=== PATIENT | female | born 1960 | race Caucasian/White ===

== ENCOUNTER 2016-10-29 17:39 | Inpatient (IN) | payer OTHER ==
[~2016-10-29] VITALS: Ht 160 cm; Wt 99.0 kg
[~2016-10-29 17:39] MED LIST: INSU100C SC; LANT3I SC; LISI10TA2 PO; OMEP20CA16 PO
[2016-10-29 22:33] VITALS: Ht 160 cm; Wt 99.0 kg
[2016-10-29 22:48] VITALS: BP 141/65; PULSE 90; RESP 18
[2016-10-29] MEDS: DEXTROSE 5%-0.9% NACL 1,000 ML IV SCH (23:24)
[2016-10-29] MEDS ORDERED: ONDANSETRON 4 MG INJ IV PRN (23:30)
[2016-10-29] MEDS ORDERED: morphine 10 MG INJ IM PRN (23:30)
[2016-10-30] MEDS ORDERED: NACL 0.9% 3 ML SYG IV SCH (00:30)
[2016-10-30] MEDS ORDERED: ACETAMINOPHEN 325 MG TAB PO PRN (00:30)
[2016-10-30] MEDS ORDERED: HYDROCODONE/APAP (5/325) TAB PO PRN (00:30)
[2016-10-30] MEDS ORDERED: ONDANSETRON 4 MG INJ IV PRN (00:30)
[2016-10-30] MEDS ORDERED: BISACODYL (EC) 5 MG TAB PO PRN (00:30)
[2016-10-30] MEDS ORDERED: GLUCOSE GEL 15 GRAM TUBE BUCCAL PRN (01:00)
[2016-10-30] MEDS ORDERED: DEXTROSE 50% 50 ML SYRINGE IV PRN ×2 (01:00)
[2016-10-30] MEDS ORDERED: GLUCOSE GEL 15 GRAM TUBE PO PRN ×2 (01:00)
[2016-10-30] MEDS ORDERED: GLUCAGON 1 MG INJ IM PRN (01:00)
[2016-10-30] MEDS: ACCU-CHEK XX SCH (02:00)
[2016-10-30] MEDS: PANTOPRAZOLE 40 MG INJ IV SCH (05:36)
[2016-10-30] MEDS ORDERED: PANTOPRAZOLE 40 MG INJ IV SCH (06:00)
[2016-10-30 07:22] VITALS: BP 107/53; RESP 16
[2016-10-30] MEDS: LISINOPRIL 10 MG TAB PO SCH (08:05)
[2016-10-30] MEDS: INSULIN ASPART [NOVOLOG] 3 ML PEN SC SCH ×4 (08:13→22:43)
[2016-10-30] MEDS: DEXTROSE 5%-0.9% NACL 1,000 ML IV SCH ×2 (12:50→20:16)
--- NOTE | 2016-10-30 16:32 | QN ---
Documentation Comment [id number] JAILYN ERNST MD Oct 30, 2016 16:32
--- NOTE | 2016-10-30 16:49 | CONS ---
[facility] initial inpatient consultation DATE OF CONSULTATION: 10/30/2016 PLACE OF SERVICE: [facility] 6th floor. IMPRESSION AND PLAN: A very pleasant 56-year-old lady with numerous comorbidities including a BMI of 38.7 as well as diabetes, gastritis and history of cirrhosis as per her own report treated by Dr. Peñaloza as an outpatient, presenting with abdominal pain of unclear etiology. The patient could be a higher than normal risk given reported cirrhosis and we also need to find out much more about her medical history prior to exposing her to the risk of an operation. Fortunately, her clinical picture is stable enough that I do not believe that she needs emergency operation. In this setting, further imaging as well as more laboratory testing would be beneficial including a HIDA scan as well as a CT scan of abdomen and pelvis with IV and oral contrast in order to get a good idea of the internal anatomy. Should she require surgical intervention that could certainly be done here at [facility] as long as the patient and family understand the extra risk that is needed that is involved in this kind of operation. I explained all this to the patient who appeared to understand and agrees with the plan. With above assessment, I recommended the followin. CT scan liver dedicated triple phase IV contrast of the abdomen and pelvis. 2. HIDA scan. 3. Load the previous images of ultrasound on to our PACS system. 4. Possible gastroenterology consultation for evaluation of the liver. 5. Possible laparoscopic cholecystectomy if indicated by above. Thank you again for allowing us to participate in the care of this very pleasant lady and I am certain her wonderful family. If there are any questions , please feel free to call me at [phone]. TOTAL VISIT TIME: 45 minutes of which more than half was spent in [id number] discussion with the patient (no family present during any of my discussions with the patient) as well as coordination of care between multiple physicians and providers. UPDATED CLINICAL SUMMARY: Patient is a very pleasant 56-year-old lady with comorbidities of possible cirrhosis as reported by her own account. Admitted through the transfer from an outside hospital to [facility] for concerns for gallbladder disease and possible acute cholecystitis. COMORBIDITIES: 1. BMI 38.7. 2. The patient reports having history of cirrhosis and being treated by Dr. Willam Peñaloza on the outside for the last 15 years. 3. Known cholelithiasis. 4. Diabetes. DATE OF ADMISSION: 10/29/2016 HISTORY OF THE PRESENT ILLNESS: The patient is a very pleasant 56-year-old lady whom we were kindly asked to consult regarding management of possible cholelithiasis and acute cholecystitis. Note that she was transferred from an outside hospital to [facility] after she presented there with right upper quadrant abdominal pain that was approximately 7/10 to 10/10 at its worse. Patient reports having history of cirrhosis and being treated by Dr. Willam Peñaloza for the last 15 years, although she does not report any evidence of ascites and no history of vomiting blood. She also reported having diabetes and thought that her cirrhosis was due to her medications. The patient's outside workup included an ultrasound of the right upper quadrant that demonstrated cholelithiasis and mildly thickened gallbladder wall, which could represent early acute cholecystitis. There was no mention of significant cirrhosis on the ultrasound. LABORATORY DATA: Show a platelet count of 120 in May. In April 2014 that was 158 in 149 respectively. The patient's albumin was 3.2. White blood cell count was 2.9. ALLERGIES: NO KNOWN DRUG ALLERGIES. MEDICATIONS 1. Lantus. 2. Humalog. 3. Lisinopril. 4. Omeprazole. SOCIAL HISTORY: The patient lives with her family and does not report any smoking, drinking or intravenous drug use. FAMILY HISTORY: No major reported medical, surgical or oncologic problems in the family. REVIEW OF SYSTEMS: Other than the above-mentioned, there are no other pertinent positives or pertinent negatives in a complete 14-point review of systems. PHYSICAL EXAMINATION: GENERAL: The patient appears to be a very pleasant lady of descent, appearing stated age, lying in bed comfortably and in no acute distress. Her BMI is 38.7. VITAL SIGNS: Temperature is 98.8, blood pressure 107/53, pulse 82, respiratory rate 16, pulse oximetry 97% on room air. HEENT: Normocephalic and atraumatic. Extraocular muscles and hearing are grossly intact bilaterally and symmetrically. Sclerae are nonicteric. Oral cavity is clear; oral mucosa appeared to be pink and moist. Dentition: fair to poor. NECK: Supple. There is no lymphadenopathy or JVD. There is no submental, submandibular or supraclavicular lymphadenopathy. CHEST: Rises symmetrically with each breath; patient is breathing comfortably. There are no audible wheezes, rales or rhonchi on the gross exam. HEART: Pulse is regular and palpable on the left wrist. Capillary refill was normal. Carotid pulses are palpable bilaterally and symmetrically in the neck. EXTREMITIES: Lower extremities contain no pitting edema around the ankles bilaterally and symmetrically. ABDOMEN: Her abdomen is soft, protuberant, but not distended and nontender. There are no peritoneal signs or guarding. There is no evidence of organomegaly , caput medusae, engorged subcutaneous veins or ascites. SKIN: Appears to be pink and feels warm to touch. NEUROLOGIC: Awake, alert, and follows commands appropriately. LABORATORY VALUES: As above. IMAGING: As above. Note that I did not get a chance to personally review the images. Dictated By: DEMARIO MENARD/MONICA Conf#: [id number] DID#: [id number]
--- NOTE | 2016-10-30 17:24 | HP ---
DATE OF ADMISSION: 10/29/2016 HISTORY OF PRESENT ILLNESS: Elaine Salgado is a 56-year-old female who is admitted with abdominal pain and was transferred to [facility] since this is [facility]. LABORATORY DATA: The patient's laboratory data done shows WBC 2.8. Patient's hemoglobin of 8.2, potassium 3.8, sodium 135, albumin 3.2. Abnormal LFT. The patient has abdominal ultrasound shows cholelithiasis, mild gallbladder wall thickening, negativ_ sign. The patient is being seen by Dr. Kennedy in consultation and Dr. Nova. The patient received normal saline, Zofran, Toradol and morphine and was transferred here for further management. PAST MEDICAL HISTORY: Positive for diabetes mellitus, dyspepsia and dyslipidemia. FAMILY HISTORY: Noncontributory. SOCIAL HISTORY: Negative for smoking and drinking at this point. Other past medical history includes gallstone, hypertension, cirrhosis of the liver, diabetes mellitus. PAST SURGICAL HISTORY: Negative. FAMILY HISTORY: Noncontributory. MEDICATION HISTORY: The patient's medication history at home includes 1. Lantus. 2. Omeprazole. 3. Simvastatin. REVIEW OF SYSTEMS: HEENT: Unremarkable. RESPIRATORY: Unremarkable. CARDIOVASCULAR: Unremarkable. ABDOMEN: As mentioned above. EXTREMITIES: Unremarkable. GENITOURINARY: Unremarkable. MUSCULOSKELETAL: Unremarkable. PHYSICAL EXAMINATION: GENERAL: Mildly overweight female, awake, alert. VITAL SIGNS: Stable. HEAD: Atraumatic, normocephalic. Pupils equal, reactive to light. NECK: Supple. No JVD. LUNGS: Clear. CARDIOVASCULAR: S1, S2 normal. ABDOMEN: Soft, nontender. Bowel sounds present. No palpable mass. EXTREMITIES: No cyanosis, clubbing, or edema. CENTRAL NERVOUS SYSTEM: The patient is awake, alert, no focal deficit. LABORATORY DATA: From this admission is not available. IMPRESSION: 1. Abdominal pain. 2. Gallstone. 3. Diabetes mellitus, hypertension, cholelithiasis, abnormal liver function tests. 4. History of cirrhosis of the liver per record. PLAN: To keep her n.p.o., IV fluid, pain medications. Gastroenterology consultation and surgical consultation. Orders were done. Deep venous thrombosis prophylaxis will be ordered. Dictated By: JAILYN KRISHNAMURTHY/MONICA Conf#: [id number] DID#: [id number] MTDD
[2016-10-30 20:10] VITALS: BP 130/68; RESP 20
[2016-10-31] MEDS: ACCU-CHEK XX SCH (02:00)
[2016-10-31] MEDS: DEXTROSE 5%-0.9% NACL 1,000 ML IV SCH ×2 (02:10→15:30)
[2016-10-31] MEDS: PANTOPRAZOLE 40 MG INJ IV SCH (05:14)
[2016-10-31 05:33] LABS: ADD SCAN DIFF NO
[2016-10-31 05:45] LABS: HEMATOCRIT 25.2 % (37.0-47.0); HEMOGLOBIN 7.5 g/dl (12.0-16.0); MEAN CORPUSCULAR HEMOGLOBIN 21.6 pg (29.0-33.0); MEAN CORPUSCULAR HGB CONC 29.8 g/dl (32.0-37.0); MEAN CORPUSCULAR VOLUME 72.4 fl (82.0-101.0); MEAN PLATELET VOLUME 9.7 fl (7.4-10.4); PLATELET COUNT 122 10^3/UL (140-415); RED BLOOD COUNT 3.48 10^6/ul (4.20-5.40); RED CELL DISTRIBUTION WIDTH 17.6 % (11.5-14.5); WHITE BLOOD COUNT 2.5 10^3/ul (4.8-10.8)
[2016-10-31 06:03] LABS: POTASSIUM 3.8 mmol/L (3.5-5.1)
[2016-10-31 06:05] LABS: ALBUMIN/GLOBULIN RATIO 0.76; BILIRUBIN,INDIRECT 0.4 mg/dl (0-1.1); BILIRUBIN,TOTAL 0.4 mg/dl (0.2-1.3); CREATININE 0.64 mg/dl (0.44-1.00); TOTAL PROTEIN 6.9 g/dl (6.1-8.1)
[2016-10-31 06:06] LABS: CALCIUM 8.1 mg/dl (8.4-10.2)
[2016-10-31 08:05] VITALS: BP 123/59; RESP 20
[2016-10-31] MEDS: LISINOPRIL 10 MG TAB PO SCH (08:24)
[2016-10-31] MEDS: INSULIN ASPART [NOVOLOG] 3 ML PEN SC SCH ×4 (09:19→20:37)
[2016-10-31 10:11] LABS: EOSINOPHILS # 0.1 10^3/ul (0.0-0.5); MONOCYTE # 0.2 10^3/ul (0.3-0.9); NEUTROPHIL # 1.3 10^3/ul (1.6-7.5)
--- NOTE | 2016-10-31 16:42 | PN ---
Date/Time of Note Date/Time of Note DATE: 10/31/16 TIME: 16:40 Assessment/Plan VTE Prophylaxis VTE Prophylaxis Intervention: ambulation, SCD's Lines/Catheters IV Catheter Type (from Nrs): Peripheral IV Urinary Cath still in place: No Assessment/Plan Chief Complaint/Hosp Course 1. Abdominal pain. 2. Gallstone. 3. Diabetes mellitus, hypertension, cholelithiasis, abnormal liver function tests. 4. History of cirrhosis of the liver per record. Problems: Assessment/Plan 1. Evaluate for possible gall bladder removal 2. Anbulate 3. Pain control Exam/Review of Systems Vital Signs Vitals Vital Signs Date Time Temp Pulse Resp B/P Pulse Ox O2 Delivery O2 Flow Rate FiO2 10/31/16 08:05 98.7 80 20 123/59 96 10/29/16 22:48 Room Air Intake and Output 10/30/16 10/30/16 10/31/16 15:00 23:00 07:00 Intake Total 525 ml 375 ml 360 ml Output Total 1200 ml 1200 ml Balance 525 ml -825 ml -840 ml Results Result Diagram: 10/31/16 0445 10/31/16 0445 Results 24 hrs Laboratory Tests Test 10/30/16 17:01 10/30/16 22:39 10/31/16 02:52 10/31/16 04:45 Bedside Glucose 117 209 154 White Blood Count 2.5 L Red Blood Count 3.48 L Hemoglobin 7.5 L Hematocrit 25.2 L Mean Corpuscular Volume 72.4 L Mean Corpuscular Hemoglobin 21.6 L Mean Corpuscular Hemoglobin Concent 29.8 L Red Cell Distribution Width 17.6 H Platelet Count 122 L Mean Platelet Volume 9.7 Neutrophils % 51.0 Lymphocytes % 39.0 Monocytes % 8.0 Eosinophils % 2.0 Neutrophils # 1.3 L Lymphocytes # 1.0 Monocytes # 0.2 L Eosinophils # 0.1 Sodium Level 146 H Potassium Level 3.8 Chloride Level 112 H Carbon Dioxide Level 25 Anion Gap 13 Blood Urea Nitrogen 9 Creatinine 0.64 Glucose Level 153 Calcium Level 8.1 L Total Bilirubin 0.4 Direct Bilirubin 0.00 Indirect Bilirubin 0.4 Aspartate Amino Transf (AST/SGOT) 49 H Alanine Aminotransferase (ALT/SGPT) 37 Alkaline Phosphatase 90 Total Protein 6.9 Albumin 3.0 L Globulin 3.90 H Albumin/Globulin Ratio 0.76 Test 3/24/17 07:56 10/31/16 11:54 Bedside Glucose 192 201 Medications Medications Current Medications Dextrose/Sodium Chloride (D5-NS) 1,000 ml @ 75 mls/hr [id number] IV Last administered on 10/30/16 20:16; Admin Dose 75 MLS/HR; Start 10/29/16 at 23:30 Pantoprazole (Protonix Iv) 40 mg DAILY@06 IV Last administered on 10/31/16 05: 14; Admin Dose 40 MG; Start 10/30/16 at 06:00 Morphine Sulfate (morphine) 2 mg Q4H PRN IM FOR PAIN; Start 10/29/16 at 23:30 Ondansetron HCl (Zofran Inj) 4 mg Q6H PRN IV NAUSEA AND/OR VOMITING; Start at 23:30 Lisinopril (Zestril) 10 mg DAILY PO Last administered on 10/31/16 08:24; Admin Dose 10 MG; Start 10/30/16 at 09:00 Ondansetron HCl (Zofran Inj) 4 mg Q6H PRN IV NAUSEA AND/OR VOMITING; Start at 00:30 Acetaminophen (Tylenol Tab) 650 mg Q6H PRN PO PAIN LEVEL 1-3 OR FEVER; Start at 00:30 Acetaminophen/ Hydrocodone Bitart ([place] (5/325)) 1 tab Q6H PRN PO MODERATE PAIN LEVEL 4-6; Start 10/30/16 at 00:30 Docusate Sodium (Colace) 100 mg Q12H PRN PO CONSTIPATION; Start 10/30/16 at 00: 30 Magnesium Hydroxide (Milk Of Mag) 30 ml DAILY PRN PO CONSTIPATION; Start at 00:30 Bisacodyl (Dulcolax) 5 mg DAILY PRN PO CONSTIPATION; Start 10/30/16 at 00:30 Diagnostic Test (Pha) (Accucheck) 1 ea 02 XX ; Start 10/30/16 at 02:00 Miscellaneous Information 1 ea NOTE XX ; Start 10/30/16 at 01:00 Glucose (Glutose) 15 gm Q15M PRN PO DECREASED GLUCOSE; Start 10/30/16 at 01:00 Glucose (Glutose) 22.5 gm Q15M PRN PO DECREASED GLUCOSE; Start 10/30/16 at 01: 00 Dextrose (D50w Syringe) 25 ml Q15M PRN IV DECREASED GLUCOSE; Start 10/30/16 at 01:00 Dextrose (D50w Syringe) 50 ml Q15M PRN IV DECREASED GLUCOSE; Start 10/30/16 at 01:00 Glucagon (Glucagen) 1 mg Q15M PRN IM DECREASED GLUCOSE; Start 10/30/16 at 01:00 Glucose (Glutose) 15 gm Q15M PRN BUCCAL DECREASED GLUCOSE; Start 10/30/16 at 01 :00 SUSANA BELLO Oct 31, 2016 16:42
--- NOTE | 2016-10-31 17:43 | PN ---
Date/Time of Note Date/Time of Note DATE: 10/31/16 TIME: 17:41 Assessment/Plan Lines/Catheters IV Catheter Type (from [facility]): Peripheral IV Lin in Place (from [facility]): No Assessment/Plan Assessment/Plan [facility] Progress Note Date of Service: 10/31/16 Today's Impression & Plan: Overall stable with benign abdomen. Awaiting liver-CT. With above assessment, I've recommended the following for today: 1. Liver CT 2. Obtain old records 3. D/W Dr. Beaver 4. Further plans after above Thank you again for your great care of this very pleasant patient and wonderful family. If there are any questions, please feel free to call me at [phone]. TOTAL VISIT TIME: 20 minutes of which more than half was spent in [id number] discussion with the patient, possibly including family, as well as coordination of care between multiple physicians and providers. Disclaimer: Inadvertent spelling or grammatical errors are likely due to EHR/ dictation software use and do not reflect on the overall quality of patient care. Updated Clinical Summary: Patient is a very pleasant 56-year-old lady with comorbidities of possible cirrhosis as reported by her own account. Admitted through the transfer from an outside hospital to [facility] for concerns for gallbladder disease and possible acute cholecystitis. COMORBIDITIES: 1. BMI 38.7. 2. The patient reports having history of cirrhosis and being treated by Dr. Willam Peñaloza on the outside for the last 15 years. 3. Known cholelithiasis. 4. Diabetes. Subjective: No major events or complaints; no abd pain and under control with medications; no n/v/d; no sob or cp; + flatus; + BM; + activity Objective: Vitals: See below Exam: GENERAL: On exam, the patient was laying in bed and appeared to be comfortable and in no acute distress. ABDOMEN: Soft, nontender and nondistended. There are no peritoneal signs or guarding. SKIN: Skin appears to be pink and feels warm to touch. NEUROLOGIC: Patient is awake, alert, and follows commands appropriately. Exam/Review of Systems Vital Signs Vitals Vital Signs Date Time Temp Pulse Resp B/P Pulse Ox O2 Delivery O2 Flow Rate FiO2 10/31/16 08:05 98.7 80 20 123/59 96 10/29/16 22:48 Room Air Intake and Output 10/30/16 10/30/16 10/31/16 15:00 23:00 07:00 Intake Total 525 ml 375 ml 360 ml Output Total 1200 ml 1200 ml Balance 525 ml -825 ml -840 ml Results Result Diagram: 10/31/16 0445 10/31/16 0445 DEMARIO JONES M.D. Oct 31, 2016 17:43
[2016-10-31 20:12] VITALS: BP 148/76; RESP 20
[2016-10-31] MEDS ORDERED: SOD CHLORIDE 0.9% 100 ML ONE (21:45)
[2016-10-31] MEDS ORDERED: IOHEXOL 300MG/ML 150 ML BTL ONE (21:45)
[2016-11-01] MEDS: ACCU-CHEK XX SCH (02:00)
[2016-11-01] MEDS: DEXTROSE 5%-0.9% NACL 1,000 ML IV SCH ×2 (05:06→17:19)
[2016-11-01] MEDS: PANTOPRAZOLE 40 MG INJ IV SCH (05:06)
[2016-11-01 07:32] VITALS: BP 132/59; RESP 18
[2016-11-01] MEDS: INSULIN ASPART [NOVOLOG] 3 ML PEN SC SCH ×4 (08:27→21:36)
[2016-11-01] MEDS: LISINOPRIL 10 MG TAB PO SCH (08:54)
--- NOTE | 2016-11-01 09:51 | RADRPT ---
PROCEDURE: CT Abdomen and Pelvis with and without contrast CLINICAL INDICATION: Abdominal pain, history of cirrhosis TECHNIQUE: Transaxial images were obtained through the abdomen on a multi-slice scanner prior to t he administration of contrast, and then following the intravenous administration of contrast, transa xial images were made through the abdomen during arterial phase and through the abdomen and pelvis a nd portal venous phase and at 3 minutes delayed. No oral contrast had previously been given. Sagit sari and coronal re-formations were subsequently reconstructed. One or more of the following dose reduction techniques were used: - Automated exposure control. - Adjustment of the mA and/or kV according to patient size. - Use of iterative reconstruction technique. Radiation dose: CTDIvol = 75.27 mGy; DLP = 3488.59 mGy-cm. COMPARISON: No prior studies are available for comparison. FINDINGS: Lung bases: The visualized lung bases appear unremarkable. Liver: The liver is normal in size but nodular in contour compatible with cirrhotic change. No foca l lesion is identified. The hepatic and portal veins appear patent. Gallbladder: The gallbladder wall is extensively thickened and a few small stones are seen within th e gallbladder. Bile ducts: The intra and extrahepatic bile ducts are normal in caliber. Pancreas: The pancreas is fatty infiltrated and there is mild fluid in the [place] pancreatic head for which an element of acute pancreatitis cannot be excluded. Spleen: The spleen is enlarged in varices are seen in the splenic hilum. Adrenals: Normal with no mass identified. Kidneys, ureters and bladder: The kidneys enhance normally and are normal in size and there is no ma ss, pathological calcification, or hydronephrosis evident. There is no perinephric stranding. The ur eters are normal in caliber and no ureteroliths are identified. The bladder is suboptimally distende d and the wall appears diffusely thickened.. Reproductive organs: The uterus deviates slightly to the left of midline. No adnexal mass is eviden t. Stomach, bowel, and mesentery: There is bowel wall thickening involving the cecum and ascending colo n as well as the splenic flexure region suggestion of colitis. There is no evidence of bowel obstru ction. Appendix: There are no findings to suggest appendicitis. Peritoneum: There is a small amount of free intraperitoneal fluid. There is stranding within the me sentery. Aorta: There is atherosclerotic vascular calcification but no abdominal aortic aneurysm is evident. IVC: Unremarkable. Lymph nodes: No pathologically enlarged nodes are identified. Osseous structures: Mild degenerative spine changes are noted. IMPRESSION: 1. A few small stones are seen to layer within the gallbladder, the gallbladder is mildly distended and the gallbladder wall is extensively thickened suspicious for cholecystitis. 2. The pancreas is fatty infiltrated and there is a small amount of fluid seen in the peripancreati c bed which could be related to generalized edema, but mild acute pancreatitis cannot be excluded re quiring clinical and laboratory correlation. 3. No wall thickening involving the cecum and ascending colon as well as the splenic flexure raising the possibly of colitis. There is no evidence of bowel obstruction. 4. Normal sized cirrhotic appearing liver with no focal lesion. 5. Splenomegaly with varices seen in the splenic hilum. 6. Small amount of free intraperitoneal fluid. No free air is evident. 7. Atherosclerotic vascular calcification. Physician Rajeev Date Time Electronically viewed and signed by Physician Rajeev on 11/01/2016 09:50 /
--- NOTE | 2016-11-01 11:11 | CONS ---
DATE OF ADMISSION: 10/29/2016 DATE OF CONSULTATION: HISTORY OF PRESENT ILLNESS: The patient is a 56-year-old female admitted through the emergency room for abdominal pain and nausea. The patient is known to have cirrhosis of liver. She does not know the exact cause. She is being followed by Dr. iWllam Beaver, who is a communication center operator. She denies GI bleeding, no chest pain, no shortness of breath, no fever. PAST MEDICAL HISTORY: Diabetes mellitus, dyspepsia and dyslipidemia. FAMILY HISTORY: Nothing contributory. SOCIAL HISTORY: Negative for drinking. MEDICATIONS: 1. Lantus. 2. Omeprazole. 3. Simvastatin. REVIEW OF SYSTEMS: Negative. PHYSICAL EXAMINATION GENERAL: Definitely overweight. CARDIOVASCULAR: No murmur, gallop or click. LUNGS: Clear. ABDOMEN: Benign. EXTREMITIES: No pedal edema. Homans sign negative. No clubbing, no cyanosis. CENTRAL NERVOUS SYSTEM: Grossly within normal limit. SGOT is 49. The rest of LFTs within normal l imits. LABORATORY DATA: CBC: Hematocrit is 25. MCV is 72, platelet count is 122. The patient had a work up at the emergency room at another hospital and due to insurance reason, she was transferred here. IMPRESSION: 1. 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 2. Obesity. 3. Diabetes mellitus. 4. Microcytic hypochromic anemia. 5. Thrombocytopenia. 6. Gallstones. PLAN: 1. At this point, is to send for hepatitis serologies to make sure she does not have hepatitis B or C. She gives a history of hepatitis B, but again she is not well informed about her disease. 2. We reviewed the CAT scan for any bile duct stone or biliary dilatation or acute cholecystitis an d also for hepatocellular cancer screening. 3. We will send stool for occult blood. 4. Patient will need EGD to look for the varicose vein and also to find out the cause for the anemi a. She had a colonoscopy done last year by Dr. Smith, and grossly it was negative. Dictated By: ELÍAS BERRY/NTS Conf#: [id number] DID#: [id number] CC: ELÍAS CARR MD;*EndCC*
[2016-11-01] MEDS: DOCUSATE SODIUM 100 MG CAP PO PRN (12:15)
[2016-11-01] MEDS: MAGNESIUM HYDROXIDE 30ML CUP PO PRN (12:15)
--- NOTE | 2016-11-01 12:46 | PN ---
Date/Time of Note Date/Time of Note DATE: 11/01/16 TIME: 12:45 Assessment/Plan VTE Prophylaxis VTE Prophylaxis Intervention: ambulation Lines/Catheters IV [facility] Peripheral IV Urinary Cath still in place: No Assessment/Plan Chief Complaint/Hosp Course 1. Abdominal pain, resolved. 2. Gallstones, s/p CT scan abdomen. 3. Diabetes mellitus, hypertension, cholelithiasis, abnormal liver function tests. 4. History of cirrhosis of the liver per record. Problems: Assessment/Plan 1. Stool OB, pending endoscopy per dr Nova Subjective 24 Hr Interval Summary Constitutional: improved, no complaints Exam/Review of Systems Vital Signs Vitals Vital Signs Date Time Temp Pulse Resp B/P Pulse Ox O2 Delivery O2 Flow Rate FiO2 11/01/16 07:32 98.1 75 18 132/59 97 10/29/16 22:48 Room Air Intake and Output 10/31/16 10/31/16 11/01/16 15:00 23:00 07:00 Intake Total 825 ml 720 ml 730 ml Balance 825 ml 720 ml 730 ml Exam Constitutional: alert, oriented Psych: no complaints Head: normocephalic Eyes: nl conjunctiva ENMT: nl external ears & nose Neck: supple Respiratory: clear to auscultation Cardiovascular: regular rate and rhythm Gastrointestinal: non-tender, soft Genitourinary - Female: nl adnexae Results Result Diagram: 10/31/165 10/31/165 Results 24 hrs Laboratory Tests Test 10/31/16 17:32 10/31/16 20:36 11/01/16 08:03 11/01/16 11:59 Bedside Glucose 138 131 159 208 Medications Medications Current Medications Dextrose/Sodium Chloride (D5-NS) 1,000 ml @ 75 mls/hr [id number] IV Last administered on 11/01/16 05:06; Admin Dose 75 MLS/HR; Start 10/29/16 at 23:30 Pantoprazole (Protonix Iv) 40 mg DAILY@06 IV Last administered on 11/01/16 05: 06; Admin Dose 40 MG; Start 10/30/16 at 06:00 Morphine Sulfate (morphine) 2 mg Q4H PRN IM FOR PAIN; Start 10/29/16 at 23:30 Ondansetron HCl (Zofran Inj) 4 mg Q6H PRN IV NAUSEA AND/OR VOMITING; Start at 23:30 Lisinopril (Zestril) 10 mg DAILY PO Last administered on 11/01/16 08:54; Admin Dose 10 MG; Start 10/30/16 at 09:00 Ondansetron HCl (Zofran Inj) 4 mg Q6H PRN IV NAUSEA AND/OR VOMITING; Start at 00:30 Acetaminophen (Tylenol Tab) 650 mg Q6H PRN PO PAIN LEVEL 1-3 OR FEVER; Start at 00:30 Acetaminophen/ Hydrocodone Bitart ([place] (5/325)) 1 tab Q6H PRN PO MODERATE PAIN LEVEL 4-6; Start 10/30/16 at 00:30 Docusate Sodium (Colace) 100 mg Q12H PRN PO CONSTIPATION Last administered on 12:15; Admin Dose 100 MG; Start 10/30/16 at 00:30 Magnesium Hydroxide (Milk Of Mag) 30 ml DAILY PRN PO CONSTIPATION Last administered on 11/01/16 12:15; Admin Dose 30 ML; Start 10/30/16 at 00:30 Bisacodyl (Dulcolax) 5 mg DAILY PRN PO CONSTIPATION; Start 10/30/16 at 00:30 Diagnostic Test (Pha) (Accucheck) 1 ea 02 XX ; Start 10/30/16 at 02:00 Miscellaneous Information 1 ea NOTE XX ; Start 10/30/16 at 01:00 Glucose (Glutose) 15 gm Q15M PRN PO DECREASED GLUCOSE; Start 10/30/16 at 01:00 Glucose (Glutose) 22.5 gm Q15M PRN PO DECREASED GLUCOSE; Start 10/30/16 at 01: 00 Dextrose (D50w Syringe) 25 ml Q15M PRN IV DECREASED GLUCOSE; Start 10/30/16 at 01:00 Dextrose (D50w Syringe) 50 ml Q15M PRN IV DECREASED GLUCOSE; Start 10/30/16 at 01:00 Glucagon (Glucagen) 1 mg Q15M PRN IM DECREASED GLUCOSE; Start 10/30/16 at 01:00 Glucose (Glutose) 15 gm Q15M PRN BUCCAL DECREASED GLUCOSE; Start 10/30/16 at 01 :00 SUSANA BELLO Nov 01, 2016 12:46
[2016-11-01 13:04] LABS: HAAIG REFLEX REFLEX FILED
[2016-11-01 14:09] LABS: HEPATITIS B CORE ANTIBODY NEGATIVE (NEGATIVE)
--- NOTE | 2016-11-01 16:25 | PN ---
Date/Time of Note Date/Time of Note DATE: 11/01/16 TIME: 16:17 Assessment/Plan Lines/Catheters IV Catheter Type (from [facility]): Peripheral IV Lin in Place (from [facility]): No Assessment/Plan Assessment/Plan [facility] Progress Note Date of Service: 11/01/16 Today's Impression & Plan: Overall stable with benign abdomen. Liver-CT findings as listed below. Patient needs cholecystectomy, but this is high risk given her cirrhosis. Never the less , risk of worsening cholecystitis outweighs surgical risk. Clinically stable and can be done during a weekday when all the hospital resources are in place. Ideally, should be done with assistance of intraoperative ultrasound to further assess the liver. Will attempt to arrange for this case on Thursday11/03/16. I explained the operation in detail to the patient with use of printed diagrams and obtained her consent for the operation. With above assessment, I've recommended the following for today: 1. Cont current cares 2. Obtain old records 3. D/W Dr. Beaver 4. Lap radha, preferably with IOUS on Thursday Thank you again for your great care of this very pleasant patient and wonderful family. If there are any questions, please feel free to call me at [phone]. TOTAL VISIT TIME: 20 minutes of which more than half was spent in [id number] discussion with the patient, possibly including family, as well as coordination of care between multiple physicians and providers. Disclaimer: Inadvertent spelling or grammatical errors are likely due to EHR/ dictation software use and do not reflect on the overall quality of patient care. Updated Clinical Summary: Patient is a very pleasant 56-year-old lady with comorbidities of possible cirrhosis as reported by her own account. Admitted through the transfer from an outside hospital to [facility] for concerns for gallbladder disease and possible acute cholecystitis. COMORBIDITIES: 1. BMI 38.7. 2. The patient reports having history of cirrhosis and being treated by Dr. Willam Peñaloza on the outside for the last 15 years. 3. Known cholelithiasis. 4. Diabetes. 5. CT abd/pelvis impression 11/01/16: 1. A few small stones are seen to layer within the gallbladder, the gallbladder is mildly distended and the gallbladder wall is extensively thickened suspicious for cholecystitis. 2. The pancreas is fatty infiltrated and there is a small amount of fluid seen in the peripancreatic bed which could be related to generalized edema, but mild acute pancreatitis cannot be excluded requiring clinical and laboratory correlation. 3. No wall thickening involving the cecum and ascending colon as well as the splenic flexure raising the possibly of colitis. There is no evidence of bowel obstruction. 4. Normal sized cirrhotic appearing liver with no focal lesion. 5. Splenomegaly with varices seen in the splenic hilum. 6. Small amount of free intraperitoneal fluid. No free air is evident. 7. Atherosclerotic vascular calcification. Subjective: No major events or complaints; no abd pain and under control with medications; no n/v/d; no sob or cp; + flatus; + BM (some diarrhea after receiving stool softener); + activity Objective: Vitals: See below Exam: GENERAL: On exam, the patient was sitting in a chair and appeared to be comfortable and in no acute distress. ABDOMEN: Soft, nontender and nondistended. There are no peritoneal signs or guarding. SKIN: Skin appears to be pink and feels warm to touch. NEUROLOGIC: Patient is awake, alert, and follows commands appropriately. Exam/Review of Systems Vital Signs Vitals Vital Signs Date Time Temp Pulse Resp B/P Pulse Ox O2 Delivery O2 Flow Rate FiO2 11/01/16 07:32 98.1 75 18 132/59 97 10/29/16 22:48 Room Air Intake and Output 10/31/16 10/31/16 11/01/16 15:00 23:00 07:00 Intake Total 825 ml 720 ml 730 ml Balance 825 ml 720 ml 730 ml Results Result Diagram: 10/31/16 0445 10/31/16 0445 DEMARIO JONES M.D. Nov 01, 2016 16:25
[2016-11-01 19:00] VITALS: BP 149/65; RESP 20
[2016-11-01] MEDS: INSULIN GLARGINE [LANtus] 3 ML PEN SC SCH (21:38)
[2016-11-02] MEDS: ACCU-CHEK XX SCH (02:00)
[2016-11-02] MEDS: DOCUSATE SODIUM 100 MG CAP PO PRN (02:21)
[2016-11-02 06:33] LABS: ALBUMIN 3.2 g/dl (3.3-4.9); POTASSIUM 3.7 mmol/L (3.5-5.1)
[2016-11-02 06:35] LABS: CREATININE 0.71 mg/dl (0.44-1.00)
[2016-11-02 06:36] LABS: ALBUMIN/GLOBULIN RATIO 0.78; BILIRUBIN,INDIRECT 0.5 mg/dl (0-1.1); BILIRUBIN,TOTAL 0.5 mg/dl (0.2-1.3); CALCIUM 8.2 mg/dl (8.4-10.2); TOTAL PROTEIN 7.3 g/dl (6.1-8.1)
[2016-11-02] MEDS: PANTOPRAZOLE 40 MG INJ IV SCH (07:00)
[2016-11-02 07:55] VITALS: BP 132/60; RESP 18
[2016-11-02] MEDS: LISINOPRIL 10 MG TAB PO SCH (08:32)
[2016-11-02] MEDS: INSULIN ASPART [NOVOLOG] 3 ML PEN SC SCH ×4 (08:36→21:31)
--- NOTE | 2016-11-02 09:51 | PN ---
Date/Time of Note Date/Time of Note DATE: 11/02/16 TIME: 09:49 Assessment/Plan Lines/Catheters IV Catheter Type (from [facility]): Saline Lock Lin in Place (from [facility]): No Assessment/Plan Assessment/Plan [facility] Progress Note Date of Service: 11/02/16 Today's Impression & Plan: Overall stable with benign abdomen. No indication for acute surgical intervention today. With above assessment, I've recommended the following for today: 1. Cont current cares 2. Obtain old records 3. D/W Dr. Beaver 4. Lap radha, preferably with IOUS on Thursday Thank you again for your great care of this very pleasant patient and wonderful family. If there are any questions, please feel free to call me at [phone]. TOTAL VISIT TIME: 20 minutes of which more than half was spent in [id number] discussion with the patient, possibly including family, as well as coordination of care between multiple physicians and providers. Disclaimer: Inadvertent spelling or grammatical errors are likely due to EHR/ dictation software use and do not reflect on the overall quality of patient care. Updated Clinical Summary: Patient is a very pleasant 56-year-old lady with comorbidities of possible cirrhosis as reported by her own account. Admitted through the transfer from an outside hospital to [facility] for concerns for gallbladder disease and possible acute cholecystitis. Liver-CT findings on as listed below. Patient needed cholecystectomy, but this was high risk given her cirrhosis. Never the less, risk of worsening cholecystitis outweighed surgical risk. Attempts were made to schedule with assistance of intraoperative ultrasound to further assess the liver. COMORBIDITIES: 1. BMI 38.7. 2. The patient reports having history of cirrhosis and being treated by Dr. Willam Peñaloza on the outside for the last 15 years. 3. Known cholelithiasis. 4. Diabetes. 5. CT abd/pelvis impression 11/01/16: 1. A few small stones are seen to layer within the gallbladder, the gallbladder is mildly distended and the gallbladder wall is extensively thickened suspicious for cholecystitis. 2. The pancreas is fatty infiltrated and there is a small amount of fluid seen in the peripancreatic bed which could be related to generalized edema, but mild acute pancreatitis cannot be excluded requiring clinical and laboratory correlation. 3. No wall thickening involving the cecum and ascending colon as well as the splenic flexure raising the possibly of colitis. There is no evidence of bowel obstruction. 4. Normal sized cirrhotic appearing liver with no focal lesion. 5. Splenomegaly with varices seen in the splenic hilum. 6. Small amount of free intraperitoneal fluid. No free air is evident. 7. Atherosclerotic vascular calcification. Subjective: No major events or complaints; no abd pain and under control with medications; no n/v/d; no sob or cp; + flatus; + BM; + activity Objective: Vitals: See below Exam: GENERAL: On exam, the patient was sitting in a chair and appeared to be comfortable and in no acute distress. ABDOMEN: Soft, nontender and nondistended. There are no peritoneal signs or guarding. SKIN: Skin appears to be pink and feels warm to touch. NEUROLOGIC: Patient is awake, alert, and follows commands appropriately. Exam/Review of Systems Vital Signs Vitals Vital Signs Date Time Temp Pulse Resp B/P Pulse Ox O2 Delivery O2 Flow Rate FiO2 11/02/16 07:55 98.8 77 18 132/60 97 10/29/16 22:48 Room Air Intake and Output 11/01/16 11/01/16 11/02/16 15:00 23:00 07:00 Intake Total 250 ml 1840 ml 720 ml Output Total 1800 ml Balance 250 ml 1840 ml -1080 ml Results Result Diagram: 10/31/16 0445 11/02/16 0502 DEMARIO JONES M.D. Nov 02, 2016 09:51
--- NOTE | 2016-11-02 16:41 | PN ---
Date/Time of Note Date/Time of Note DATE: 11/02/16 TIME: 16:40 Assessment/Plan VTE Prophylaxis VTE Prophylaxis Intervention: other Lines/Catheters IV Catheter Type (from [facility]): Saline Lock Urinary Cath still in place: No Assessment/Plan Chief Complaint/Hosp Course 1. Abdominal pain, resolved. 2. Gallstones, s/p CT scan abdomen. 3. Diabetes mellitus, hypertension, cholelithiasis, abnormal liver function tests. 4. History of cirrhosis of the liver per record. Problems: SURGERY AM Problems: Subjective 24 Hr Interval Summary Cardiovascular: no complaints Gastrointestinal: no complaints Exam/Review of Systems Vital Signs Vitals Vital Signs Date Time Temp Pulse Resp B/P Pulse Ox O2 Delivery O2 Flow Rate FiO2 11/02/16 07:55 98.8 77 18 132/60 97 10/29/16 22:48 Room Air Intake and Output 11/01/16 11/01/16 11/02/16 15:00 23:00 07:00 Intake Total 250 ml 1840 ml 720 ml Output Total 1800 ml Balance 250 ml 1840 ml -1080 ml Exam Respiratory: clear to auscultation Cardiovascular: regular rate and rhythm Gastrointestinal: soft Musculoskeletal: nl extremities to inspection Extremities: normal pulses Results Result Diagram: 10/31/16 0445 11/02/16 0502 Results 24 hrs Laboratory Tests Test 11/01/16 17:06 11/01/16 21:29 11/02/16 02:16 11/02/16 05:02 Bedside Glucose 263 H 223 H 149 Sodium Level 142 Potassium Level 3.7 Chloride Level 109 Carbon Dioxide Level 25 Anion Gap 12 Blood Urea Nitrogen 7 Creatinine 0.71 Glucose Level 118 Calcium Level 8.2 L Total Bilirubin 0.5 Direct Bilirubin 0.00 Indirect Bilirubin 0.5 Aspartate Amino Transf (AST/SGOT) 47 H Alanine Aminotransferase (ALT/SGPT) 36 Alkaline Phosphatase 94 Total Protein 7.3 Albumin 3.2 L Globulin 4.10 H Albumin/Globulin Ratio 0.78 Test 11/02/16 07:00 11/02/16 08:31 11/02/16 12:25 Stool Occult Blood NEGATIVE Bedside Glucose 153 175 Medications Medications Current Medications Pantoprazole (Protonix Iv) 40 mg DAILY@06 IV Last administered on 11/02/16t 07: 00; Admin Dose 40 MG; Start 10/30/16 at 06:00 Morphine Sulfate (morphine) 2 mg Q4H PRN IM FOR PAIN; Start 10/29/16 at 23:30 Ondansetron HCl (Zofran Inj) 4 mg Q6H PRN IV NAUSEA AND/OR VOMITING; Start at 23:30 Lisinopril (Zestril) 10 mg DAILY PO Last administered on 11/02/16 08:32; Admin Dose 10 MG; Start 10/30/16 at 09:00 Ondansetron HCl (Zofran Inj) 4 mg Q6H PRN IV NAUSEA AND/OR VOMITING; Start at 00:30 Acetaminophen (Tylenol Tab) 650 mg Q6H PRN PO PAIN LEVEL 1-3 OR FEVER; Start at 00:30 Acetaminophen/ Hydrocodone Bitart ([place] (5/325)) 1 tab Q6H PRN PO MODERATE PAIN LEVEL 4-6; Start 10/30/16 at 00:30 Docusate Sodium (Colace) 100 mg Q12H PRN PO CONSTIPATION Last administered on 02:21; Admin Dose 100 MG; Start 10/30/16 at 00:30 Magnesium Hydroxide (Milk Of Mag) 30 ml DAILY PRN PO CONSTIPATION Last administered on 11/01/16 12:15; Admin Dose 30 ML; Start 10/30/16 at 00:30 Bisacodyl (Dulcolax) 5 mg DAILY PRN PO CONSTIPATION; Start 10/30/16 at 00:30 Diagnostic Test (Pha) (Accucheck) 1 ea 02 XX ; Start 10/30/16 at 02:00 Miscellaneous Information 1 ea NOTE XX ; Start 10/30/16 at 01:00 Glucose (Glutose) 15 gm Q15M PRN PO DECREASED GLUCOSE; Start 10/30/16 at 01:00 Glucose (Glutose) 22.5 gm Q15M PRN PO DECREASED GLUCOSE; Start 10/30/16 at 01: 00 Dextrose (D50w Syringe) 25 ml Q15M PRN IV DECREASED GLUCOSE; Start 10/30/16 at 01:00 Dextrose (D50w Syringe) 50 ml Q15M PRN IV DECREASED GLUCOSE; Start 10/30/16 at 01:00 Glucagon (Glucagen) 1 mg Q15M PRN IM DECREASED GLUCOSE; Start 10/30/16 at 01:00 Glucose (Glutose) 15 gm Q15M PRN BUCCAL DECREASED GLUCOSE; Start 10/30/16 at 01 :00 Insulin Glargine (Lantus) 50 unit DAILY@20 SC Last administered on 11/01/16t 21 :38; Admin Dose 50 UNIT; Start 11/01/16 at 20:00 JAILYN ERNST MD Nov 02, 2016 16:41
--- NOTE | 2016-11-02 18:52 | CONS ---
Date/Time of Note Date/Time of Note DATE: 11/02/16 TIME: 18:49 Assessment/Plan Assessment/Plan Additional Assessment/Plan IMPRESSION: 1. 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 2. Obesity. 3. Diabetes mellitus. 4. Microcytic hypochromic anemia. 5. Thrombocytopenia. 6. Gallstones. 7. Abdominal pain better Plan 1. Continue present care 2. Patient definitely needs EGD for the surveillance of varicose veins #3 surgical follow-up Consultation Date/Type/Reason Admit Date/Time Oct 29, 2016 at 21:35 Initial Consult Date 24 HR Interval Summary Constitutional: improved, no complaints Exam/Review of Systems Vital Signs Vitals Vital Signs Date Time Temp Pulse Resp B/P Pulse Ox O2 Delivery O2 Flow Rate FiO2 11/02/16 07:55 98.8 77 18 132/60 97 10/29/16 22:48 Room Air Intake and Output 11/01/16 11/01/16 11/02/16 15:00 23:00 07:00 Intake Total 250 ml 1840 ml 720 ml Output Total 1800 ml Balance 250 ml 1840 ml -1080 ml Exam Constitutional: alert, oriented, well developed Psych: nl mood/affect, no complaints Head: atraumatic, normocephalic Eyes: EOMI, PERRL, nl conjunctiva, nl lids, nl sclera ENMT: nl external ears & nose, nl lips & teeth, nl nasal mucosa & septum Neck: non-tender, supple Respiratory: clear to auscultation, normal air movement Cardiovascular: nl pulses, regular rate and rhythm Gastrointestinal: nl liver, spleen, non-tender, soft Musculoskeletal: nl extremities to inspection, nl gait and stance Extremities: normal pulses Neurological: GATE ATTENDANT II-XII intact, nl mental status, nl speech, nl strength Skin: nl turgor, No rash or lesions Lymph: nl lymph nodes Results Result Diagram: 10/31/16 0445 11/02/16 0502 Results 24 hrs Laboratory Tests Test 11/01/16 21:29 11/02/16 02:16 11/02/16 05:02 11/02/16 07:00 Bedside Glucose 223 H 149 Sodium Level 142 Potassium Level 3.7 Chloride Level 109 Carbon Dioxide Level 25 Anion Gap 12 Blood Urea Nitrogen 7 Creatinine 0.71 Glucose Level 118 Calcium Level 8.2 L Total Bilirubin 0.5 Direct Bilirubin 0.00 Indirect Bilirubin 0.5 Aspartate Amino Transf (AST/SGOT) 47 H Alanine Aminotransferase (ALT/SGPT) 36 Alkaline Phosphatase 94 Total Protein 7.3 Albumin 3.2 L Globulin 4.10 H Albumin/Globulin Ratio 0.78 Stool Occult Blood NEGATIVE Test 11/02/16 08:31 11/02/16 12:25 11/02/16 17:05 Bedside Glucose 153 175 172 Medications Medications Current Medications Pantoprazole (Protonix Iv) 40 mg DAILY@06 IV Last administered on 11/02/16 07: 00; Admin Dose 40 MG; Start 10/30/16 at 06:00 Morphine Sulfate (morphine) 2 mg Q4H PRN IM FOR PAIN; Start 10/29/16 at 23:30 Ondansetron HCl (Zofran Inj) 4 mg Q6H PRN IV NAUSEA AND/OR VOMITING; Start at 23:30 Lisinopril (Zestril) 10 mg DAILY PO Last administered on 11/02/16 08:32; Admin Dose 10 MG; Start 10/30/16 at 09:00 Ondansetron HCl (Zofran Inj) 4 mg Q6H PRN IV NAUSEA AND/OR VOMITING; Start at 00:30 Acetaminophen (Tylenol Tab) 650 mg Q6H PRN PO PAIN LEVEL 1-3 OR FEVER; Start at 00:30 Acetaminophen/ Hydrocodone Bitart ([place] (5/325)) 1 tab Q6H PRN PO MODERATE PAIN LEVEL 4-6; Start 10/30/16 at 00:30 Docusate Sodium (Colace) 100 mg Q12H PRN PO CONSTIPATION Last administered on 02:21; Admin Dose 100 MG; Start 10/30/16 at 00:30 Magnesium Hydroxide (Milk Of Mag) 30 ml DAILY PRN PO CONSTIPATION Last administered on 11/01/16 12:15; Admin Dose 30 ML; Start 10/30/16 at 00:30 Bisacodyl (Dulcolax) 5 mg DAILY PRN PO CONSTIPATION; Start 10/30/16 at 00:30 Diagnostic Test (Pha) (Accucheck) 1 ea 02 XX ; Start 10/30/16 at 02:00 Miscellaneous Information 1 ea NOTE XX ; Start 10/30/16 at 01:00 Glucose (Glutose) 15 gm Q15M PRN PO DECREASED GLUCOSE; Start 10/30/16 at 01:00 Glucose (Glutose) 22.5 gm Q15M PRN PO DECREASED GLUCOSE; Start 10/30/16 at 01: 00 Dextrose (D50w Syringe) 25 ml Q15M PRN IV DECREASED GLUCOSE; Start 10/30/16 at 01:00 Dextrose (D50w Syringe) 50 ml Q15M PRN IV DECREASED GLUCOSE; Start 10/30/16 at 01:00 Glucagon (Glucagen) 1 mg Q15M PRN IM DECREASED GLUCOSE; Start 10/30/16 at 01:00 Glucose (Glutose) 15 gm Q15M PRN BUCCAL DECREASED GLUCOSE; Start 10/30/16 at 01 :00 Insulin Glargine (Lantus) 50 unit DAILY@20 SC Last administered on 11/01/16t 21 :38; Admin Dose 50 UNIT; Start 11/01/16 at 20:00 ELÍAS CARR MD Nov 02, 2016 18:52
[2016-11-02 20:00] VITALS: BP 139/64; RESP 20
[2016-11-02] MEDS: INSULIN GLARGINE [LANtus] 3 ML PEN SC SCH (21:30)
[2016-11-03] VITALS (14 sets, daily range): BP systolic 118–148; BP diastolic 57–86; PULSE 68–80; RESP 14–20
[2016-11-03] MEDS: ACCU-CHEK XX SCH (02:00)
[2016-11-03] MEDS: PANTOPRAZOLE 40 MG INJ IV SCH (05:42)
[2016-11-03] MEDS ORDERED: DEXTROSE 5%-0.45% NACL 1,000 ML IV SCH (08:00)
[2016-11-03] MEDS: INSULIN ASPART [NOVOLOG] 3 ML PEN SC SCH ×4 (08:15→21:34)
[2016-11-03] MEDS: LISINOPRIL 10 MG TAB PO SCH (08:24)
[2016-11-03] MEDS ORDERED: FENTAnyl 50 MCG/ML VIAL ONE (13:01)
[2016-11-03] MEDS ORDERED: PHENYLephrine (100 MCG/ML) 5ML SYG ONE (13:01)
[2016-11-03] MEDS ORDERED: BUPIVACAINE 0.25%/EPI (SDV) 30 ML INJ ONE (13:11)
[2016-11-03] MEDS ORDERED: HEPARIN 1000 UNITS/ML 10 ML INJ ONE (13:18)
--- NOTE | 2016-11-03 13:20 | HPN ---
Date/Time of Note Date/Time of Note DATE: 11/03/16 TIME: 13:02 Interval H&P Admission Note Pt. seen H&P reviewed: No system changes Pt. seen H&P reviewed. No system changes (I attest that I have seen and examined the patient and reviewed the operation in detail, as well as its risks , benefits and alternatives of the operation). I attest that I have seen and examined the patient and reviewed in detail the operation, and its associated risks, benefits and alternative. I have answered all the patient's questions to the best of my ability and the patient wishes to proceed. Please refer to rest of electronic medical record for additional updates. DEMARIO JONES M.D. Nov 03, 2016 13:20
[2016-11-03 13:25] LABS: INR 1.21; PROTIME 15.4 Sec (12.2-14.2); PT RATIO 1.2
[2016-11-03 13:27] LABS: PARTIAL THROMBOPLASTIN TIME 30.1 Sec (25.0-35.0)
[2016-11-03] MEDS ORDERED: HEPARIN 1000 UNITS/NS 500 ML BAG IV ONE (13:30)
[2016-11-03] MEDS ORDERED: BUPIVACAINE 0.25%/EPI (SDV) 30 ML INJ INJ ONE (13:45)
[2016-11-03] MEDS ORDERED: METOCLOPRAMIDE 10 MG INJ IV PRN (14:00)
[2016-11-03] MEDS ORDERED: DIPHENHYDRAMINE 50 MG INJ IV PRN (14:00)
[2016-11-03] MEDS ORDERED: HYDROmorphONE (0.2 MG/ML) 10ML SYG IV PRN ×3 (14:00)
[2016-11-03] MEDS ORDERED: MEPERIDINE 25 MG INJ IV PRN (14:00)
[2016-11-03] MEDS ORDERED: ONDANSETRON 4 MG INJ IV PRN (14:00)
[2016-11-03] MEDS ORDERED: ROPIVACAINE 0.5 % 30 ML VIAL ONE (14:45)
[2016-11-03] MEDS ORDERED: SUCCINYLCHOLINE CHLORIDE 100 MG/5 ML SYG IV ONE (14:45)
[2016-11-03] MEDS ORDERED: NEOSTIGMINE 3 MG/3 ML SYRINGE ONE (14:45)
[2016-11-03] MEDS ORDERED: PROPOFOL 40 ML ONE (14:45)
[2016-11-03] MEDS ORDERED: GLYCOPYRROLATE 0.4 MG INJ ONE (14:45)
[2016-11-03] MEDS ORDERED: LIDOCAINE 2% (SDV) 5 ML INJ ONE (14:45)
[2016-11-03] MEDS ORDERED: ROCURONIUM 50 MG INJ ONE (14:45)
--- NOTE | 2016-11-03 15:19 | OPR ---
Date/Time of Note Date/Time of Note DATE: 11/03/16 TIME: 15:05 Operative Report Operative\Procedure Findings [facility] INPATIENT OPERATIVE NOTE PLACE OF SERVICE: [facility] DATE OF SURGERY: 11/03/2016 PREOPERATIVE DIAGNOSIS: 1. Chronic cholecystitis 2. The patient reports having history of cirrhosis and being treated by Dr. Willam Peñaloza on the outside for the last 15 years. Splenomegaly with varices seen in the splenic hilum. Ascites. 3. Known cholelithiasis. 4. BMI 38.7. 5. Diabetes. 6. Atherosclerotic vascular calcification. POSTOPERATIVE DIAGNOSIS: 1. Chronic cholecystitis 2. Cirrhosis with portal hypertension as evidenced by splenomegaly with varices seen in the splenic hilum, recanalized umbilical vein, and ascites. 3. Known cholelithiasis. 4. BMI 38.7. 5. Diabetes. 6. Atherosclerotic vascular calcification. OPERATION: 1. Laparoscopic cholecystectomy (modifier 22) 2. Laparoscopic core needle liver biopsy of segment 5 (3 cores) SURGEON: Genaro Jones M.D. CLOTH SHRINKER: None ANESTHESIA: General endotracheal tube anesthesia ANESTHESIOLOGIST: Vern yDkes M.D. BRIEF SUMMARY: An otherwise uncomplicated but challenging laparoscopic cholecystectomy was performed with findings of chronic cholecystitis in the setting of significant cirrhosis complicated by ascites as well as splenomegaly and recanalized umbilical vein indicating portal hypertension. Updated Clinical Summary: Patient is a very pleasant 56-year-old lady with comorbidities of possible cirrhosis as reported by her own account. Admitted through the transfer from an outside hospital to [facility] for concerns for gallbladder disease and possible acute cholecystitis. Liver-CT findings on as listed below. Patient needed cholecystectomy, but this was high risk given her cirrhosis. Never the less, risk of worsening cholecystitis outweighed surgical risk. Attempts were made to schedule with assistance of intraoperative ultrasound to further assess the liver. COMORBIDITIES: 1. BMI 38.7. 2. The patient reports having history of cirrhosis and being treated by Dr. Willam Peñaloza on the outside for the last 15 years. 3. Known cholelithiasis. 4. Diabetes. 5. CT abd/pelvis impression 11/01/16: 1. A few small stones are seen to layer within the gallbladder, the gallbladder is mildly distended and the gallbladder wall is extensively thickened suspicious for cholecystitis. 2. The pancreas is fatty infiltrated and there is a small amount of fluid seen in the peripancreatic bed which could be related to generalized edema, but mild acute pancreatitis cannot be excluded requiring clinical and laboratory correlation. 3. No wall thickening involving the cecum and ascending colon as well as the splenic flexure raising the possibly of colitis. There is no evidence of bowel obstruction. 4. Normal sized cirrhotic appearing liver with no focal lesion. 5. Splenomegaly with varices seen in the splenic hilum. 6. Small amount of free intraperitoneal fluid. No free air is evident. 7. Atherosclerotic vascular calcification. BRIEF HISTORY: The patient is a very pleasant 56-year-old lady with above- mentioned history who was admitted with diagnosis of possible cholecystitis. There was evidence an indication for surgical intervention given the thickened gallbladder wall indicative of significant inflammation and the increased perioperative risk due to cirrhosis. Given presence of our liver program at [facility], I recommended that the patient undergoes laparoscopic cholecystectomy during this admission. I met with the patient (no family present during any of my discussions with the patient) and counseled her regarding the possible options of treatment. We reviewed the operation in detail as well as the risks, benefits, alternatives, and expected outcomes of this operation. After careful consideration of all the risks, benefits, and alternatives, the patient appeared to understand those risks and wished to proceed with surgery. For a detailed report of my consultation with patient, please refer to my separate consultation note. STATEMENT OF THE INFORMED CONSENT: The patient appeared to understand the risks of the operation to include, but not be limited to risk of postoperative pain and scar tissue, possible infection or bleeding requiring other interventions such as opening the wound, placement of drainage catheters, or other operative interventions; possible injury to surrounding to structures including bowel, bladder, bile duct, or blood vessels, or solid organs such as liver, kidney, or pancreas requiring other interventions or procedures; possible leakage of bile from surgical clip sites, suture lines, or worse, from common bile duct injury, causing significant increase in morbidity and mortality and requiring multiple interventions including but not limited to, placement of drainage catheters, imaging studies, as well as operative interventions; possible other source of sepsis such as urinary tract infections or pneumonias, or other sources of potentially life threatening problems such as deep venous thrombus formation causing pulmonary embolism, myocardial arrhythmias and infarctions, and even . We also briefly discussed the potential need to receive blood products and their potential complications of blood transfusion reactions, transmission of infections, or other complications. After careful consideration of all their options, the patient and family appeared to understand and wished to proceed with surgery. DESCRIPTION OF PROCEDURE: After obtaining informed consent, the patient was brought into the operating room and was placed in a normal supine position, where successful general endotracheal tube anesthesia was performed. The patient 's abdominal skin was prepped and draped, from the nipple line down to the level of the groins, in the usual sterile fashion. Intravenous access was already in place, and appropriately chosen and dosed prophylactic intravenous antimicrobials were administered. Anesthesia also placed in a line. We then called a surgical time-out where patient's identification, date of , nature of the operation, allergies, presence of intravenous antimicrobials, presence of needed equipment, and any other concerns were reviewed and agreed upon by all members of the operating room team. We then started the operation by placing a 5-mm skin incision in the right- upper quadrant, subcostal midclavicular line, and introduced a 5-mm [employer] trocar into the peritoneal space, visualizing all the layers of the abdominal wall as we entered. Note that there was no indication of any injury to underlying structures once we entered the peritoneum. We insufflated the abdominal cavity to a maximum pressure of 15 mmHg, again, confirmed lack of any injury to underlying structures prior to visualizing the rest of the abdominal cavity. Liver appeared to be significantly sclerotic. There was also presence of ascites. There was indication of recanalization of the umbilical vein. There was also splenomegaly. There was no evidence of malignancy. No evidence of calcifications or significant issues with adhesions, or other abnormalities. With this information, we went a head and placed the other trocars under direct visualization, after injecting their sites with 0.25% Marcaine with epinephrine , placing a 5-mm trocar in the umbilical midline area, a 5-mm trocar in the right anterior axillary line, and a 12-mm trocar in the midline subxiphoid region. With our instruments in place, we had excellent visualization and access to the right-upper quadrant. We then grasped the fundus of the gallbladder and pointed up towards the right- upper quadrant. We were then able to grasp the infundibulum and pull it out in order to expose the critical triangle of Calot. Gallbladder appeared to be significantly edematous but there was no evidence of any necrotic areas. Gallbladder wall appeared to be thickened. We then placed our usual serosal cuts along the long axis of the gallbladder 1 cm away from its attachment to the liver bed up towards the fundus, and then joined these 2 lines under the infundibulum, taking care not to deliver any energy to underlying structures. Given the significant amount of inflammation near the area of triangle of Calot , I decided to maximize the degree of safety of the operation by taking the gallbladder top-down which were accomplished using cautery. Noticed that this entailed significantly more amount of detail work and skill in order to maintain adequate hemostasis given the presence of portal hypertension. 2 areas of bleeding vessels along the gallbladder bed were controlled using a 10 mm clip national accounts recruiter. We also used cautery judiciously to control the hemorrhage without delivering any energy to underlying structures in the renato hepatis. Once the gallbladder was sufficiently freed from its gallbladder bed and only connected to the renato hepatis, we transected across it using one firing of the 60 mm [place] stapler using a vascular (white) load. The stapler fired correctly and that was database development project manager rows of waqas present. There was no evidence of hemorrhage or bile leak. We then delivered the gallbladder out inside of an EndoCatch bag through the 12-mm trocar site without enlarging the fascia or contaminating the wound. The gallbladder was sent to Pathology for evaluation. We then performed core needle liver biopsy of segment 5 using a [employer] core needle liver biopsy instrument and sent 3 cores to pathology for permanent sections. Site of the biopsy was controlled using cautery. We then ensured that there was adequate hemostasis (we deflated the abdominal cavity and waited at least 5 minutes prior to reinflation and careful inspection of the gallbladder bed) and bile-stasis prior to removal of all of or equipment, including the pneumoperitoneum, and then reapproximating the 12- mm trocar site with one [id number] 0 Vicryl suture, followed by washing the wounds with copious amounts of normal saline, and then reapproximating the skin using interrupted 4-0 Monocryl sutures. Light dressing was then applied. At the end of the operation, both the sponge count and needle count were reportedly correct x2. The patient tolerated the procedure without any reported complications. ESTIMATED BLOOD LOSS: 100 mL BLOOD OR BLOOD PRODUCT TRANSFUSIONS: None to my knowledge. SPECIMENS: 1. Gallbladder 2. Core liver needle biopsy segment 53 cores COMPLICATIONS: None. DISPOSITION: Recovery area. Disclaimer: Inadvertent spelling and grammatical errors are likely due to EHR/ dictation software use and do not reflect on the quality of delivered patient care. GENARO JONES M.D. Nov 03, 2016 15:19
[2016-11-03] MEDS: FENTAnyl 50 MCG/ML VIAL IV PRN ×4 (15:22→15:49)
[2016-11-03] MEDS ORDERED: BISACODYL 10 MG SUPP PR PRN (15:30)
[2016-11-03] MEDS ORDERED: HYDROCODONE/APAP (5/325) TAB PO PRN (15:30)
[2016-11-03] MEDS ORDERED: HYDROmorphONE 1 MG/ML SYG IV PRN (15:30)
[2016-11-03] MEDS ORDERED: NA PHOSPHATE/BIPHOS 133 ML ENEMA PR PRN (15:30)
[2016-11-03] MEDS ORDERED: DOCUSATE SODIUM 100 MG CAP PO PRN (15:30)
[2016-11-03] MEDS: HYDROmorphONE 1 MG/ML SYG IV PRN (16:33)
[2016-11-03] MEDS: D5W-0.45 NACL + KCL 20 MEQ 1,000 ML IV SCH (16:33)
[2016-11-03 18:06] LABS: ADD SCAN DIFF NO
[2016-11-03 18:08] LABS: BASOPHILS % 0.3 % (0.0-2.0); EOSINOPHILS # 0.1 10^3/ul (0.0-0.5); EOSINOPHILS % 2.6 % (0.0-7.0); HEMATOCRIT 25.4 % (37.0-47.0); HEMOGLOBIN 7.5 g/dl (12.0-16.0); LYMPHOCYTES # 0.8 10^3/ul (0.8-2.9); LYMPHOCYTES % 25.1 % (15.0-51.0); MEAN CORPUSCULAR HEMOGLOBIN 21.6 pg (29.0-33.0); MEAN CORPUSCULAR HGB CONC 29.5 g/dl (32.0-37.0); MEAN PLATELET VOLUME 9.2 fl (7.4-10.4); MONOCYTE # 0.3 10^3/ul (0.3-0.9); MONOCYTES % 10.6 % (0.0-11.0); NEUTROPHIL # 1.9 10^3/ul (1.6-7.5); NEUTROPHILS % 61.1 % (39.0-77.0); PLATELET COUNT 126 10^3/UL (140-415); RED BLOOD COUNT 3.48 10^6/ul (4.20-5.40); RED CELL DISTRIBUTION WIDTH 17.6 % (11.5-14.5); WHITE BLOOD COUNT 3.1 10^3/ul (4.8-10.8)
[2016-11-03 18:18] LABS: ALBUMIN 2.9 g/dl (3.3-4.9)
[2016-11-03 18:19] LABS: POTASSIUM 3.9 mmol/L (3.5-5.1)
[2016-11-03 18:21] LABS: ALBUMIN/GLOBULIN RATIO 0.72; BILIRUBIN,INDIRECT 0.3 mg/dl (0-1.1); BILIRUBIN,TOTAL 0.3 mg/dl (0.2-1.3); CREATININE 0.82 mg/dl (0.44-1.00); TOTAL PROTEIN 6.9 g/dl (6.1-8.1)
[2016-11-03 18:23] LABS: INR 1.25; MAGNESIUM 1.8 mg/dl (1.7-2.5); PARTIAL THROMBOPLASTIN TIME 30.5 Sec (25.0-35.0); PHOSPHORUS 4.3 mg/dl (2.5-4.9); PROTIME 15.8 Sec (12.2-14.2); PT RATIO 1.2
--- NOTE | 2016-11-03 18:50 | PN ---
Date/Time of Note Date/Time of Note DATE: 11/03/16 TIME: 18:49 Assessment/Plan VTE Prophylaxis VTE Prophylaxis Intervention: other Lines/Catheters IV [facility] (from [facility]): Peripheral IV Urinary Cath still in place: No Assessment/Plan Chief Complaint/Hosp Course 1. Abdominal pain, 2. Gallstones, s/p CT scan abdomen. 3. Diabetes mellitus, hypertension, cholelithiasis, abnormal liver function tests. 4. History of cirrhosis of the liver per record. 5 s/p lap radha Problems: labs per surgery Problems: Subjective 24 Hr Interval Summary Cardiovascular: no complaints Gastrointestinal: pain (+) Exam/Review of Systems Vital Signs Vitals Vital Signs Date Time Temp Pulse Resp B/P Pulse Ox O2 Delivery O2 Flow Rate FiO2 11/03/16 17:55 77 18 127/70 98 Room Air 11/03/16 15:18 97.7 8.0 Intake and Output 11/02/16 11/02/16 11/03/16 15:00 23:00 07:00 Intake Total 2860 ml 700 ml Output Total 100 ml Balance 2860 ml 600 ml Exam Neck: supple Respiratory: clear to auscultation Cardiovascular: regular rate and rhythm Gastrointestinal: tender (+) Results Result Diagram: 11/03/16 1745 11/03/16 1745 Results 24 hrs Laboratory Tests Test 11/02/16 21:24 11/03/16 02:04 11/03/16 08:10 11/03/16 12:03 Bedside Glucose 190 153 112 124 Test 11/03/16 12:55 11/03/16 17:00 11/03/16 17:45 Prothrombin Time 15.4 H 15.8 H Prothrombin Time Ratio 1.2 1.2 INR International Normalized Ratio 1.21 1.25 Activated Partial Thromboplast Time 30.1 30.5 Bedside Glucose 141 White Blood Count 3.1 #L Red Blood Count 3.48 L Hemoglobin 7.5 L Hematocrit 25.4 L Mean Corpuscular Volume 73.0 L Mean Corpuscular Hemoglobin 21.6 L Mean Corpuscular Hemoglobin Concent 29.5 L Red Cell Distribution Width 17.6 H Platelet Count 126 L Mean Platelet Volume 9.2 Neutrophils % 61.1 Lymphocytes % 25.1 Monocytes % 10.6 Eosinophils % 2.6 Basophils % 0.3 Nucleated Red Blood Cells % 0.0 Neutrophils # 1.9 Lymphocytes # 0.8 Monocytes # 0.3 Eosinophils # 0.1 Basophils # 0.0 Nucleated Red Blood Cells # 0.0 Sodium Level 141 Potassium Level 3.9 Chloride Level 110 Carbon Dioxide Level 24 Anion Gap 11 Blood Urea Nitrogen 9 Creatinine 0.82 Glucose Level 149 Lactic Acid Level 1.0 Calcium Level 8.0 L Phosphorus Level 4.3 Magnesium Level 1.8 Total Bilirubin 0.3 Direct Bilirubin 0.00 Indirect Bilirubin 0.3 Aspartate Amino Transf (AST/SGOT) 50 H Alanine Aminotransferase (ALT/SGPT) 46 Alkaline Phosphatase 88 Total Protein 6.9 Albumin 2.9 L Globulin 4.00 H Albumin/Globulin Ratio 0.72 Medications Medications Current Medications Pantoprazole (Protonix Iv) 40 mg DAILY@06 IV Last administered on 11/03/16 05: 42; Admin Dose 40 MG; Start 10/30/16 at 06:00 Lisinopril (Zestril) 10 mg DAILY PO Last administered on 11/02/16 08:32; Admin Dose 10 MG; Start 10/30/16 at 09:00 Ondansetron HCl (Zofran Inj) 4 mg Q6H PRN IV NAUSEA AND/OR VOMITING Last administered on 11/03/16 15:30; Admin Dose 4 MG; Start 10/30/16 at 00:30 Acetaminophen (Tylenol Tab) 650 mg Q6H PRN PO PAIN LEVEL 1-3 OR FEVER; Start at 00:30 Magnesium Hydroxide (Milk Of Mag) 30 ml DAILY PRN PO CONSTIPATION Last administered on 11/01/16 12:15; Admin Dose 30 ML; Start 10/30/16 at 00:30 Bisacodyl (Dulcolax) 5 mg DAILY PRN PO CONSTIPATION; Start 10/30/16 at 00:30 Diagnostic Test (Pha) (Accucheck) 1 ea 02 XX ; Start 10/30/16 at 02:00 Miscellaneous Information 1 ea NOTE XX ; Start 10/30/16 at 01:00 Glucose (Glutose) 15 gm Q15M PRN PO DECREASED GLUCOSE; Start 10/30/16 at 01:00 Glucose (Glutose) 22.5 gm Q15M PRN PO DECREASED GLUCOSE; Start 10/30/16 at 01: 00 Dextrose (D50w Syringe) 25 ml Q15M PRN IV DECREASED GLUCOSE; Start 10/30/16 at 01:00 Dextrose (D50w Syringe) 50 ml Q15M PRN IV DECREASED GLUCOSE; Start 10/30/16 at 01:00 Glucagon (Glucagen) 1 mg Q15M PRN IM DECREASED GLUCOSE; Start 10/30/16 at 01:00 Glucose (Glutose) 15 gm Q15M PRN BUCCAL DECREASED GLUCOSE; Start 10/30/16 at 01 :00 Insulin Glargine 50 unit 50 unit DAILY@20 SC Last administered on 11/02/16 21: 30; Admin Dose 50 UNIT; Start 11/01/16 at 20:00 Potassium Chloride/Dextrose/ Sod Cl (D5-1/2ns + KCl 20 Meq) 1,000 ml @ 100 mls/ hr Q10H IV Last administered on 11/03/16 16:33; Admin Dose 100 MLS/HR; Start 11/03/16 at 15:19 Acetaminophen/ Hydrocodone Bitart ([place] (5/325)) 1 tab Q4H PRN PO PAIN LEVEL 4 -7; Start 11/03/16 at 15:30 Acetaminophen/ Hydrocodone Bitart ([place] (5/325)) 2 tab Q4H PRN PO PAIN LEVEL 7 -10; Start 11/03/16 at 15:30 Hydromorphone HCl (Dilaudid) 0.5 mg Q2H PRN IV PAIN; Start 11/03/16 at 15:30 Hydromorphone HCl (Dilaudid) 1 mg Q2H PRN IV PAIN Last administered on 16:33; Admin Dose 1 MG; Start 11/03/16 at 15:30 Docusate Sodium (Colace) 100 mg BID PRN PO CONSTIPATION; Start 11/03/16 at 15: 30 Bisacodyl (Dulcolax Supp) 10 mg BID PRN [place] CONSTIPATION; Start 11/03/16 at 15: 30 Sodium Biphosphate/ Sodium Phosphate (Fleet Enema) 133 ml BID PRN [place] CONSTIPATION; Start 11/03/16 at 15:30 JAILYN ERNST MD Nov 03, 2016 18:50
--- NOTE | 2016-11-03 20:12 | CONS ---
Date/Time of Note Date/Time of Note DATE: 11/03/16 TIME: 20:11 Assessment/Plan Assessment/Plan Additional Assessment/Plan IMPRESSION: 1. 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 2. Obesity. 3. Diabetes mellitus. 4. Microcytic hypochromic anemia. 5. Thrombocytopenia. 6. Gallstones. 7. Abdominal pain better 8. Status post laparoscopic cholecystectomy and liver biopsy Plan 1. Continue present care 2. Patient definitely needs EGD for the surveillance of varicose veins #3 surgical follow-up 4. Continue postoperative care will review path Consultation Date/Type/Reason Admit Date/Time Oct 29, 2016 at 21:35 24 HR Interval Summary Free Text/Dictation Postoperative pain Exam/Review of Systems Vital Signs Vitals Vital Signs Date Time Temp Pulse Resp B/P Pulse Ox O2 Delivery O2 Flow Rate FiO2 11/03/16 17:55 77 18 127/70 98 Room Air 11/03/16 15:18 97.7 8.0 Intake and Output 11/02/16 11/02/16 11/03/16 15:00 23:00 07:00 Intake Total 2860 ml 700 ml Output Total 100 ml Balance 2860 ml 600 ml Exam Constitutional: alert, oriented, well developed Psych: nl mood/affect, no complaints Head: atraumatic, normocephalic Eyes: EOMI, PERRL, nl conjunctiva, nl lids, nl sclera ENMT: nl external ears & nose, nl lips & teeth, nl nasal mucosa & septum Neck: non-tender, supple Respiratory: clear to auscultation, normal air movement Cardiovascular: nl pulses, regular rate and rhythm Gastrointestinal: nl liver, spleen, non-tender, soft Musculoskeletal: nl extremities to inspection, nl gait and stance Extremities: normal pulses Neurological: MD PEDIATRIC ALLERGIST II-XII intact, nl mental status, nl speech, nl strength Skin: nl turgor, No rash or lesions Lymph: nl lymph nodes Results Result Diagram: 11/03/16 1745 11/03/16 1745 Results 24 hrs Laboratory Tests Test 11/02/16 21:24 11/03/16 02:04 11/03/16 08:10 11/03/16 12:03 Bedside Glucose 190 153 112 124 Test 11/03/16 12:55 11/03/16 17:00 11/03/16 17:45 Prothrombin Time 15.4 H 15.8 H Prothrombin Time Ratio 1.2 1.2 INR International Normalized Ratio 1.21 1.25 Activated Partial Thromboplast Time 30.1 30.5 Bedside Glucose 141 White Blood Count 3.1 #L Red Blood Count 3.48 L Hemoglobin 7.5 L Hematocrit 25.4 L Mean Corpuscular Volume 73.0 L Mean Corpuscular Hemoglobin 21.6 L Mean Corpuscular Hemoglobin Concent 29.5 L Red Cell Distribution Width 17.6 H Platelet Count 126 L Mean Platelet Volume 9.2 Neutrophils % 61.1 Lymphocytes % 25.1 Monocytes % 10.6 Eosinophils % 2.6 Basophils % 0.3 Nucleated Red Blood Cells % 0.0 Neutrophils # 1.9 Lymphocytes # 0.8 Monocytes # 0.3 Eosinophils # 0.1 Basophils # 0.0 Nucleated Red Blood Cells # 0.0 Sodium Level 141 Potassium Level 3.9 Chloride Level 110 Carbon Dioxide Level 24 Anion Gap 11 Blood Urea Nitrogen 9 Creatinine 0.82 Glucose Level 149 Lactic Acid Level 1.0 Calcium Level 8.0 L Phosphorus Level 4.3 Magnesium Level 1.8 Total Bilirubin 0.3 Direct Bilirubin 0.00 Indirect Bilirubin 0.3 Aspartate Amino Transf (AST/SGOT) 50 H Alanine Aminotransferase (ALT/SGPT) 46 Alkaline Phosphatase 88 Total Protein 6.9 Albumin 2.9 L Globulin 4.00 H Albumin/Globulin Ratio 0.72 Medications Medications Current Medications Pantoprazole (Protonix Iv) 40 mg DAILY@06 IV Last administered on 11/03/16 05: 42; Admin Dose 40 MG; Start 10/30/16 at 06:00 Lisinopril (Zestril) 10 mg DAILY PO Last administered on 11/02/16 08:32; Admin Dose 10 MG; Start 10/30/16 at 09:00 Ondansetron HCl (Zofran Inj) 4 mg Q6H PRN IV NAUSEA AND/OR VOMITING Last administered on 11/03/16 15:30; Admin Dose 4 MG; Start 10/30/16 at 00:30 Acetaminophen (Tylenol Tab) 650 mg Q6H PRN PO PAIN LEVEL 1-3 OR FEVER; Start at 00:30 Magnesium Hydroxide (Milk Of Mag) 30 ml DAILY PRN PO CONSTIPATION Last administered on 11/01/16 12:15; Admin Dose 30 ML; Start 10/30/16 at 00:30 Bisacodyl (Dulcolax) 5 mg DAILY PRN PO CONSTIPATION; Start 10/30/16 at 00:30 Diagnostic Test (Pha) (Accucheck) 1 ea 02 XX ; Start 10/30/16 at 02:00 Miscellaneous Information 1 ea NOTE XX ; Start 10/30/16 at 01:00 Glucose (Glutose) 15 gm Q15M PRN PO DECREASED GLUCOSE; Start 10/30/16 at 01:00 Glucose (Glutose) 22.5 gm Q15M PRN PO DECREASED GLUCOSE; Start 10/30/16 at 01: 00 Dextrose (D50w Syringe) 25 ml Q15M PRN IV DECREASED GLUCOSE; Start 10/30/16 at 01:00 Dextrose (D50w Syringe) 50 ml Q15M PRN IV DECREASED GLUCOSE; Start 10/30/16 at 01:00 Glucagon (Glucagen) 1 mg Q15M PRN IM DECREASED GLUCOSE; Start 10/30/16 at 01:00 Glucose (Glutose) 15 gm Q15M PRN BUCCAL DECREASED GLUCOSE; Start 10/30/16 at 01 :00 Insulin Glargine 50 unit 50 unit DAILY@20 SC Last administered on 11/02/16 21: 30; Admin Dose 50 UNIT; Start 11/01/16 at 20:00 Potassium Chloride/Dextrose/ Sod Cl (D5-1/2ns + KCl 20 Meq) 1,000 ml @ 100 mls/ hr Q10H IV Last administered on 11/03/16 16:33; Admin Dose 100 MLS/HR; Start 11/03/16 at 15:19 Acetaminophen/ Hydrocodone Bitart ([place] (5/325)) 1 tab Q4H PRN PO PAIN LEVEL 4 -7; Start 11/03/16 at 15:30 Acetaminophen/ Hydrocodone Bitart ([place] (5/325)) 2 tab Q4H PRN PO PAIN LEVEL 7 -10; Start 11/03/16 at 15:30 Hydromorphone HCl (Dilaudid) 0.5 mg Q2H PRN IV PAIN; Start 11/03/16 at 15:30 Hydromorphone HCl (Dilaudid) 1 mg Q2H PRN IV PAIN Last administered on 16:33; Admin Dose 1 MG; Start 11/03/16 at 15:30 Docusate Sodium (Colace) 100 mg BID PRN PO CONSTIPATION; Start 11/03/16 at 15: 30 Bisacodyl (Dulcolax Supp) 10 mg BID PRN [place] CONSTIPATION; Start 11/03/16 at 15: 30 Sodium Biphosphate/ Sodium Phosphate (Fleet Enema) 133 ml BID PRN [place] CONSTIPATION; Start 11/03/16 at 15:30 ELÍAS CARR MD Nov 03, 2016 20:12
[2016-11-03] MEDS: INSULIN GLARGINE [LANtus] 3 ML PEN SC SCH (21:35)
[2016-11-04] MEDS: D5W-0.45 NACL + KCL 20 MEQ 1,000 ML IV SCH ×4 (01:19→14:55)
[2016-11-04] MEDS: HYDROmorphONE 1 MG/ML SYG IV PRN ×2 (01:59→06:26)
[2016-11-04] MEDS: ACCU-CHEK XX SCH (02:00)
[2016-11-04 05:13] LABS: ADD SCAN DIFF NO
[2016-11-04 05:25] LABS: INR 1.22; PROTIME 15.5 Sec (12.2-14.2); PT RATIO 1.2
[2016-11-04 05:26] LABS: BASOPHILS % 0.3 % (0.0-2.0); EOSINOPHILS # 0.1 10^3/ul (0.0-0.5); EOSINOPHILS % 2.3 % (0.0-7.0); HEMATOCRIT 28.6 % (37.0-47.0); HEMOGLOBIN 8.6 g/dl (12.0-16.0); LYMPHOCYTES # 0.6 10^3/ul (0.8-2.9); LYMPHOCYTES % 17.4 % (15.0-51.0); MEAN CORPUSCULAR HEMOGLOBIN 22.2 pg (29.0-33.0); MEAN CORPUSCULAR HGB CONC 30.1 g/dl (32.0-37.0); MEAN CORPUSCULAR VOLUME 73.7 fl (82.0-101.0); MEAN PLATELET VOLUME 9.1 fl (7.4-10.4); MONOCYTE # 0.5 10^3/ul (0.3-0.9); MONOCYTES % 13.6 % (0.0-11.0); NEUTROPHIL # 2.3 10^3/ul (1.6-7.5); NEUTROPHILS % 66.1 % (39.0-77.0); PARTIAL THROMBOPLASTIN TIME 29.9 Sec (25.0-35.0); PLATELET COUNT 129 10^3/UL (140-415); RED BLOOD COUNT 3.88 10^6/ul (4.20-5.40); WHITE BLOOD COUNT 3.5 10^3/ul (4.8-10.8)
[2016-11-04] MEDS: PANTOPRAZOLE 40 MG INJ IV SCH (06:16)
[2016-11-04 07:31] LABS: ALBUMIN 3.1 g/dl (3.3-4.9)
[2016-11-04 07:32] LABS: POTASSIUM 3.9 mmol/L (3.5-5.1)
[2016-11-04 07:34] LABS: ALBUMIN/GLOBULIN RATIO 0.75; BILIRUBIN,INDIRECT 0.5 mg/dl (0-1.1); BILIRUBIN,TOTAL 0.5 mg/dl (0.2-1.3); CREATININE 0.72 mg/dl (0.44-1.00); TOTAL PROTEIN 7.2 g/dl (6.1-8.1)
[2016-11-04 07:35] LABS: MAGNESIUM 1.9 mg/dl (1.7-2.5); PHOSPHORUS 3.7 mg/dl (2.5-4.9)
[2016-11-04 07:38] VITALS: BP 126/57; RESP 22
[2016-11-04] MEDS: LISINOPRIL 10 MG TAB PO SCH (08:14)
[2016-11-04] MEDS: INSULIN ASPART [NOVOLOG] 3 ML PEN SC SCH ×4 (08:20→20:46)
--- NOTE | 2016-11-04 10:31 | PN ---
Date/Time of Note Date/Time of Note DATE: 11/04/16 TIME: 10:29 Assessment/Plan Lines/Catheters IV Catheter Type (from Nrsg): Peripheral IV Lin in Place (from Nrsg): No Assessment/Plan Assessment/Plan COVERING FOR DR. JONES 56-year-old female with history of cirrhosis with active chronic cholecystitis and cholelithiasis status post laparoscopic cholecystectomy and liver biopsy. POD#1 * Advance diet as tolerated * Pain control * Out of bed and incentive spirometry * Continue medical management Subjective 24 Hr Interval Summary COVERING FOR DR. JONES Complains of headache. Abdominal pain controlled. Afebrile. Exam/Review of Systems Vital Signs Vitals Vital Signs Date Time Temp Pulse Resp B/P Pulse Ox O2 Delivery O2 Flow Rate FiO2 11/04/16 07:38 99.1 91 22 126/57 97 11/03/16 17:55 Room Air 11/03/16 15:18 8.0 Intake and Output 11/03/16 11/03/16 11/04/16 15:00 23:00 07:00 Intake Total 570 ml 1730 ml Output Total 350 ml 100 ml Balance 220 ml 1630 ml Exam Free Text/Dictation ABDOMEN: Soft, appropriate incisional tenderness palpation DRESSINGS: In place with minimal saturation Results Result Diagram: 11/04/16 0448 11/04/16 0448 GLADYS BRIGHT MD Nov 04, 2016 10:31
--- NOTE | 2016-11-04 15:25 | PDOCDIS ---
Discharge Instructions CONDITION Patient Condition: Stable HOME CARE INSTRUCTIONS: Diet Instructions: Low Fat /Cholesterol ACTIVITY: Activity Restrictions: Slowly Increase Activity FOLLOW UP/APPOINTMENTS Appointments f/u own pcp [address] palumbo 1 wk JAILYN ERNST MD Nov 04, 2016 15:25
[2016-11-04] MEDS ORDERED: DULR PR (15:27)
[2016-11-04] MEDS: HYDROCODONE/APAP (5/325) TAB PO PRN ×2 (17:26→20:44)
--- NOTE | 2016-11-04 17:49 | PN ---
Date/Time of Note Date/Time of Note DATE: 11/04/16 TIME: 17:47 Assessment/Plan VTE Prophylaxis VTE Prophylaxis Intervention: other Lines/Catheters IV Catheter Type (from [facility]): Peripheral IV Urinary Cath still in place: No Assessment/Plan Chief Complaint/Hosp Course 1. Abdominal pain, 2. Gallstones, s/p CT scan abdomen. 3. Diabetes mellitus, hypertension, cholelithiasis, abnormal liver function tests. 4. History of cirrhosis of the liver per record. 5 s/p lap radha Problems: home Problems: Subjective 24 Hr Interval Summary Respiratory: no complaints Cardiovascular: no complaints Gastrointestinal: pain (mild) Exam/Review of Systems Vital Signs Vitals Vital Signs Date Time Temp Pulse Resp B/P Pulse Ox O2 Delivery O2 Flow Rate FiO2 11/04/16 07:38 99.1 91 22 126/57 97 11/03/16 17:55 Room Air 11/03/16 15:18 8.0 Intake and Output 11/03/16 11/03/16 11/04/16 15:00 23:00 07:00 Intake Total 570 ml 1730 ml Output Total 350 ml 100 ml Balance 220 ml 1630 ml Exam Neck: supple Cardiovascular: regular rate and rhythm Gastrointestinal: soft Musculoskeletal: nl extremities to inspection Extremities: normal pulses Results Result Diagram: 11/04/16 0448 11/04/16 0448 Results 24 hrs Laboratory Tests Test 11/03/16 21:29 11/04/16 02:09 11/04/16 04:48 11/04/16 08:06 Bedside Glucose 183 123 179 White Blood Count 3.5 L Red Blood Count 3.88 L Hemoglobin 8.6 L Hematocrit 28.6 L Mean Corpuscular Volume 73.7 L Mean Corpuscular Hemoglobin 22.2 L Mean Corpuscular Hemoglobin Concent 30.1 L Red Cell Distribution Width 18.0 H Platelet Count 129 L Mean Platelet Volume 9.1 Neutrophils % 66.1 Lymphocytes % 17.4 Monocytes % 13.6 H Eosinophils % 2.3 Basophils % 0.3 Nucleated Red Blood Cells % 0.0 Neutrophils # 2.3 Lymphocytes # 0.6 L Monocytes # 0.5 Eosinophils # 0.1 Basophils # 0.0 Nucleated Red Blood Cells # 0.0 Prothrombin Time 15.5 H Prothrombin Time Ratio 1.2 INR International Normalized Ratio 1.22 Activated Partial Thromboplast Time 29.9 Sodium Level 138 Potassium Level 3.9 Chloride Level 108 Carbon Dioxide Level 23 Anion Gap 11 Blood Urea Nitrogen 9 Creatinine 0.72 Glucose Level 156 Lactic Acid Level 0.7 Calcium Level 8.0 L Phosphorus Level 3.7 Magnesium Level 1.9 Total Bilirubin 0.5 Direct Bilirubin 0.00 Indirect Bilirubin 0.5 Aspartate Amino Transf (AST/SGOT) 53 H Alanine Aminotransferase (ALT/SGPT) 41 Alkaline Phosphatase 94 B-Type Natriuretic Peptide 57 Total Protein 7.2 Albumin 3.1 L Globulin 4.10 H Albumin/Globulin Ratio 0.75 Test 11/04/16 11:57 Bedside Glucose 168 Medications Medications Current Medications Pantoprazole (Protonix Iv) 40 mg DAILY@06 IV Last administered on 11/04/16 06: 16; Admin Dose 40 MG; Start 10/30/16 at 06:00 Lisinopril (Zestril) 10 mg DAILY PO Last administered on 11/04/16 08:14; Admin Dose 10 MG; Start 10/30/16 at 09:00 Ondansetron HCl (Zofran Inj) 4 mg Q6H PRN IV NAUSEA AND/OR VOMITING Last administered on 11/03/16 15:30; Admin Dose 4 MG; Start 10/30/16 at 00:30 Acetaminophen (Tylenol Tab) 650 mg Q6H PRN PO PAIN LEVEL 1-3 OR FEVER; Start at 00:30 Magnesium Hydroxide (Milk Of Mag) 30 ml DAILY PRN PO CONSTIPATION Last administered on 11/01/16 12:15; Admin Dose 30 ML; Start 10/30/16 at 00:30 Bisacodyl (Dulcolax) 5 mg DAILY PRN PO CONSTIPATION; Start 10/30/16 at 00:30 Diagnostic Test (Pha) (Accucheck) 1 ea 02 XX ; Start 10/30/16 at 02:00 Miscellaneous Information 1 ea NOTE XX ; Start 10/30/16 at 01:00 Glucose (Glutose) 15 gm Q15M PRN PO DECREASED GLUCOSE; Start 10/30/16 at 01:00 Glucose (Glutose) 22.5 gm Q15M PRN PO DECREASED GLUCOSE; Start 10/30/16 at 01: 00 Dextrose (D50w Syringe) 25 ml Q15M PRN IV DECREASED GLUCOSE; Start 10/30/16 at 01:00 Dextrose (D50w Syringe) 50 ml Q15M PRN IV DECREASED GLUCOSE; Start 10/30/16 at 01:00 Glucagon (Glucagen) 1 mg Q15M PRN IM DECREASED GLUCOSE; Start 10/30/16 at 01:00 Glucose (Glutose) 15 gm Q15M PRN BUCCAL DECREASED GLUCOSE; Start 10/30/16 at 01 :00 Insulin Glargine 50 unit 50 unit DAILY@20 SC Last administered on 11/03/16 21: 35; Admin Dose 50 UNIT; Start 11/01/16 at 20:00 Potassium Chloride/Dextrose/ Sod Cl (D5-1/2ns + KCl 20 Meq) 1,000 ml @ 100 mls/ hr Q10H IV Last administered on 11/04/16 14:55; Admin Dose 100 MLS/HR; Start 11/03/16 at 15:19 Acetaminophen/ Hydrocodone Bitart ([place] (5/325)) 1 tab Q4H PRN PO PAIN LEVEL 4 -7 Last administered on 11/04/16 11:14; Admin Dose 1 TAB; Start 11/03/16 at 15: 30 Acetaminophen/ Hydrocodone Bitart ([place] (5/325)) 2 tab Q4H PRN PO PAIN LEVEL 7 -10 Last administered on 11/04/16 17:26; Admin Dose 2 TAB; Start 11/03/16 at 15 :30 Hydromorphone HCl (Dilaudid) 0.5 mg Q2H PRN IV PAIN; Start 11/03/16 at 15:30 Hydromorphone HCl (Dilaudid) 1 mg Q2H PRN IV PAIN Last administered on 06:26; Admin Dose 1 MG; Start 11/03/16 at 15:30 Docusate Sodium (Colace) 100 mg BID PRN PO CONSTIPATION Last administered on 12:55; Admin Dose 100 MG; Start 11/03/16 at 15:30 Bisacodyl (Dulcolax Supp) 10 mg BID PRN [place] CONSTIPATION; Start 11/03/16 at 15: 30 Sodium Biphosphate/ Sodium Phosphate (Fleet Enema) 133 ml BID PRN [place] CONSTIPATION; Start 11/03/16 at 15:30 JAILYN ERNST MD Nov 04, 2016 17:49
[2016-11-04 20:00] VITALS: BP 135/61; RESP 20
[2016-11-04] MEDS: MAGNESIUM HYDROXIDE 30ML CUP PO PRN (20:43)
[2016-11-04] MEDS: INSULIN GLARGINE [LANtus] 3 ML PEN SC SCH (20:46)
--- NOTE | 2016-11-04 23:00 | CONS ---
Date/Time of Note Date/Time of Note DATE: 11/04/16 TIME: 22:58 Assessment/Plan Assessment/Plan Additional Assessment/Plan Additional Assessment/Plan IMPRESSION: 1. 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 2. Obesity. 3. Diabetes mellitus. 4. Microcytic hypochromic anemia. 5. Thrombocytopenia. 6. Gallstones. 7. Abdominal pain better 8. Status post laparoscopic cholecystectomy and liver biopsy Plan 1. Continue present care 2. Patient definitely needs EGD for the surveillance of varicose veins #3 surgical follow-up 4. Continue postoperative care,path chronic cholecystitis,cirrhosis Consultation Date/Type/Reason Admit Date/Time Oct 29, 2016 at 21:35 24 HR Interval Summary Constitutional: improved, no complaints Exam/Review of Systems Vital Signs Vitals Vital Signs Date Time Temp Pulse Resp B/P Pulse Ox O2 Delivery O2 Flow Rate FiO2 11/04/16 20:00 98.0 81 20 135/61 98 11/03/16 17:55 Room Air 11/03/16 15:18 8.0 Intake and Output 11/03/16 11/03/16 11/04/16 15:00 23:00 07:00 Intake Total 570 ml 1730 ml Output Total 350 ml 100 ml Balance 220 ml 1630 ml Exam Constitutional: alert, oriented, well developed Psych: nl mood/affect, no complaints Head: atraumatic, normocephalic Eyes: EOMI, PERRL, nl conjunctiva, nl lids, nl sclera ENMT: nl external ears & nose, nl lips & teeth, nl nasal mucosa & septum Neck: non-tender, supple Respiratory: clear to auscultation, normal air movement Cardiovascular: nl pulses, regular rate and rhythm Gastrointestinal: nl liver, spleen, non-tender, soft Musculoskeletal: nl extremities to inspection, nl gait and stance Extremities: normal pulses Neurological: TECHNOLOGY METHODOLOGY CONSULTANT II-XII intact, nl mental status, nl speech, nl strength Skin: nl turgor, No rash or lesions Lymph: nl lymph nodes Results Result Diagram: 11/04/16 0448 11/04/16 0448 Results 24 hrs Laboratory Tests Test 11/04/16 02:09 11/04/16 04:48 11/04/16 08:06 11/04/16 11:57 Bedside Glucose 123 179 168 White Blood Count 3.5 L Red Blood Count 3.88 L Hemoglobin 8.6 L Hematocrit 28.6 L Mean Corpuscular Volume 73.7 L Mean Corpuscular Hemoglobin 22.2 L Mean Corpuscular Hemoglobin Concent 30.1 L Red Cell Distribution Width 18.0 H Platelet Count 129 L Mean Platelet Volume 9.1 Neutrophils % 66.1 Lymphocytes % 17.4 Monocytes % 13.6 H Eosinophils % 2.3 Basophils % 0.3 Nucleated Red Blood Cells % 0.0 Neutrophils # 2.3 Lymphocytes # 0.6 L Monocytes # 0.5 Eosinophils # 0.1 Basophils # 0.0 Nucleated Red Blood Cells # 0.0 Prothrombin Time 15.5 H Prothrombin Time Ratio 1.2 INR International Normalized Ratio 1.22 Activated Partial Thromboplast Time 29.9 Sodium Level 138 Potassium Level 3.9 Chloride Level 108 Carbon Dioxide Level 23 Anion Gap 11 Blood Urea Nitrogen 9 Creatinine 0.72 Glucose Level 156 Lactic Acid Level 0.7 Calcium Level 8.0 L Phosphorus Level 3.7 Magnesium Level 1.9 Total Bilirubin 0.5 Direct Bilirubin 0.00 Indirect Bilirubin 0.5 Aspartate Amino Transf (AST/SGOT) 53 H Alanine Aminotransferase (ALT/SGPT) 41 Alkaline Phosphatase 94 B-Type Natriuretic Peptide 57 Total Protein 7.2 Albumin 3.1 L Globulin 4.10 H Albumin/Globulin Ratio 0.75 Test 11/04/16 20:39 Bedside Glucose 221 H Medications Medications Current Medications Pantoprazole (Protonix Iv) 40 mg DAILY@06 IV Last administered on 11/04/16 06: 16; Admin Dose 40 MG; Start 10/30/16 at 06:00 Lisinopril (Zestril) 10 mg DAILY PO Last administered on 11/04/16 08:14; Admin Dose 10 MG; Start 10/30/16 at 09:00 Ondansetron HCl (Zofran Inj) 4 mg Q6H PRN IV NAUSEA AND/OR VOMITING Last administered on 11/03/16 15:30; Admin Dose 4 MG; Start 10/30/16 at 00:30 Acetaminophen (Tylenol Tab) 650 mg Q6H PRN PO PAIN LEVEL 1-3 OR FEVER; Start at 00:30 Magnesium Hydroxide (Milk Of Mag) 30 ml DAILY PRN PO CONSTIPATION Last administered on 11/04/16 20:43; Admin Dose 30 ML; Start 10/30/16 at 00:30 Bisacodyl (Dulcolax) 5 mg DAILY PRN PO CONSTIPATION; Start 10/30/16 at 00:30 Diagnostic Test (Pha) (Accucheck) 1 ea 02 XX ; Start 10/30/16 at 02:00 Miscellaneous Information 1 ea NOTE XX ; Start 10/30/16 at 01:00 Glucose (Glutose) 15 gm Q15M PRN PO DECREASED GLUCOSE; Start 10/30/16 at 01:00 Glucose (Glutose) 22.5 gm Q15M PRN PO DECREASED GLUCOSE; Start 10/30/16 at 01: 00 Dextrose (D50w Syringe) 25 ml Q15M PRN IV DECREASED GLUCOSE; Start 10/30/16 at 01:00 Dextrose (D50w Syringe) 50 ml Q15M PRN IV DECREASED GLUCOSE; Start 10/30/16 at 01:00 Glucagon (Glucagen) 1 mg Q15M PRN IM DECREASED GLUCOSE; Start 10/30/16 at 01:00 Glucose (Glutose) 15 gm Q15M PRN BUCCAL DECREASED GLUCOSE; Start 10/30/16 at 01 :00 Insulin Glargine (Lantus) 50 unit DAILY@20 SC Last administered on 11/04/16 20 :46; Admin Dose 50 UNIT; Start 11/01/16 at 20:00 Acetaminophen/ Hydrocodone Bitart ([place] (5/325)) 1 tab Q4H PRN PO PAIN LEVEL 4 -7 Last administered on 11/04/16 11:14; Admin Dose 1 TAB; Start 11/03/16 at 15: 30 Acetaminophen/ Hydrocodone Bitart ([place] (5/325)) 2 tab Q4H PRN PO PAIN LEVEL 7 -10 Last administered on 11/04/16 17:26; Admin Dose 2 TAB; Start 11/03/16 at 15 :30 Hydromorphone HCl (Dilaudid) 0.5 mg Q2H PRN IV PAIN; Start 11/03/16 at 15:30 Hydromorphone HCl (Dilaudid) 1 mg Q2H PRN IV PAIN Last administered on 06:26; Admin Dose 1 MG; Start 11/03/16 at 15:30 Docusate Sodium (Colace) 100 mg BID PRN PO CONSTIPATION Last administered on 3/ 28/17at 12:55; Admin Dose 100 MG; Start 11/03/16 at 15:30 Bisacodyl (Dulcolax Supp) 10 mg BID PRN [place] CONSTIPATION; Start 11/03/16 at 15: 30 Sodium Biphosphate/ Sodium Phosphate (Fleet Enema) 133 ml BID PRN [place] CONSTIPATION; Start 11/03/16 at 15:30 ELÍAS CARR MD Nov 04, 2016 23:00
[2016-11-05] MEDS: HYDROCODONE/APAP (5/325) TAB PO PRN ×2 (01:32→12:52)
[2016-11-05] MEDS: ACCU-CHEK XX SCH (02:35)
[2016-11-05] MEDS: PANTOPRAZOLE 40 MG INJ IV SCH (05:38)
[2016-11-05 07:20] VITALS: BP 146/62; RESP 16
[2016-11-05] MEDS: LISINOPRIL 10 MG TAB PO SCH (08:32)
[2016-11-05] MEDS: INSULIN ASPART [NOVOLOG] 3 ML PEN SC SCH ×4 (10:05→20:24)
--- NOTE | 2016-11-05 17:49 | CONS ---
Date/Time of Note Date/Time of Note DATE: 11/05/16 TIME: 17:48 Assessment/Plan Assessment/Plan Additional Assessment/Plan IMPRESSION: 1. 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 2. Obesity. 3. Diabetes mellitus. 4. Microcytic hypochromic anemia. 5. Thrombocytopenia. 6. Gallstones. 7. Abdominal pain better 8. Status post laparoscopic cholecystectomy and liver biopsy Plan 1. Continue present care 2. Patient definitely needs EGD for the surveillance of varicose veins #3 surgical follow-up Consultation Date/Type/Reason Admit Date/Time Oct 29, 2016 at 21:35 24 HR Interval Summary Free Text/Dictation abdominal pain,rt upper quadrant Exam/Review of Systems Vital Signs Vitals Vital Signs Date Time Temp Pulse Resp B/P Pulse Ox O2 Delivery O2 Flow Rate FiO2 11/05/16 07:20 98.1 89 16 146/62 97 11/03/16 17:55 Room Air 11/03/16 15:18 8.0 Intake and Output 11/04/16 11/04/16 11/05/16 15:00 23:00 07:00 Intake Total 1000 ml 1180 ml 490 ml Balance 1000 ml 1180 ml 490 ml Exam Constitutional: alert, oriented, well developed Psych: nl mood/affect, no complaints Head: atraumatic, normocephalic Eyes: EOMI, PERRL, nl conjunctiva, nl lids, nl sclera ENMT: nl external ears & nose, nl lips & teeth, nl nasal mucosa & septum Neck: non-tender, supple Respiratory: clear to auscultation, normal air movement Cardiovascular: nl pulses, regular rate and rhythm Gastrointestinal: nl liver, spleen, non-tender, soft Musculoskeletal: nl extremities to inspection, nl gait and stance Extremities: normal pulses Neurological: CATTLE BROKER II-XII intact, nl mental status, nl speech, nl strength Skin: nl turgor, No rash or lesions Lymph: nl lymph nodes Results Result Diagram: 11/04/16 0448 11/04/168 Results 24 hrs Laboratory Tests Test 11/04/16 20:39 11/05/16 01:59 11/05/16 07:49 11/05/16 11:57 Bedside Glucose 221 H 188 153 177 Test 11/05/16 17:10 Bedside Glucose 181 Medications Medications Current Medications Lisinopril (Zestril) 10 mg DAILY PO Last administered on 11/05/16 08:32; Admin Dose 10 MG; Start 10/30/16 at 09:00 Ondansetron HCl (Zofran Inj) 4 mg Q6H PRN IV NAUSEA AND/OR VOMITING Last administered on 11/03/16 15:30; Admin Dose 4 MG; Start 10/30/16 at 00:30 Acetaminophen (Tylenol Tab) 650 mg Q6H PRN PO PAIN LEVEL 1-3 OR FEVER; Start at 00:30 Magnesium Hydroxide (Milk Of Mag) 30 ml DAILY PRN PO CONSTIPATION Last administered on 11/04/16 20:43; Admin Dose 30 ML; Start 10/30/16 at 00:30 Bisacodyl (Dulcolax) 5 mg DAILY PRN PO CONSTIPATION; Start 10/30/16 at 00:30 Diagnostic Test (Pha) (Accucheck) 1 ea 02 XX Last administered on 11/05/16 02: 35; Admin Dose 1 EA; Start 10/30/16 at 02:00 Miscellaneous Information 1 ea NOTE XX ; Start 10/30/16 at 01:00 Glucose (Glutose) 15 gm Q15M PRN PO DECREASED GLUCOSE; Start 10/30/16 at 01:00 Glucose (Glutose) 22.5 gm Q15M PRN PO DECREASED GLUCOSE; Start 10/30/16 at 01: 00 Dextrose (D50w Syringe) 25 ml Q15M PRN IV DECREASED GLUCOSE; Start 10/30/16 at 01:00 Dextrose (D50w Syringe) 50 ml Q15M PRN IV DECREASED GLUCOSE; Start 10/30/16 at 01:00 Glucagon (Glucagen) 1 mg Q15M PRN IM DECREASED GLUCOSE; Start 10/30/16 at 01:00 Glucose (Glutose) 15 gm Q15M PRN BUCCAL DECREASED GLUCOSE; Start 10/30/16 at 01 :00 Insulin Glargine (Lantus) 50 unit DAILY@20 SC Last administered on 11/04/16 20 :46; Admin Dose 50 UNIT; Start 11/01/16 at 20:00 Acetaminophen/ Hydrocodone Bitart ([place] (5/325)) 1 tab Q4H PRN PO PAIN LEVEL 4 -7 Last administered on 11/04/16 11:14; Admin Dose 1 TAB; Start 11/03/16 at 15: 30 Acetaminophen/ Hydrocodone Bitart ([place] (5/325)) 2 tab Q4H PRN PO PAIN LEVEL 7 -10 Last administered on 11/05/16 12:52; Admin Dose 2 TAB; Start 11/03/16 at 15 :30 Hydromorphone HCl (Dilaudid) 0.5 mg Q2H PRN IV PAIN; Start 11/03/16 at 15:30 Hydromorphone HCl (Dilaudid) 1 mg Q2H PRN IV PAIN Last administered on 06:26; Admin Dose 1 MG; Start 11/03/16 at 15:30 Docusate Sodium (Colace) 100 mg BID PRN PO CONSTIPATION Last administered on 12:55; Admin Dose 100 MG; Start 11/03/16 at 15:30 Bisacodyl (Dulcolax Supp) 10 mg BID PRN [place] CONSTIPATION; Start 11/03/16 at 15: 30 Sodium Biphosphate/ Sodium Phosphate (Fleet Enema) 133 ml BID PRN [place] CONSTIPATION; Start 11/03/16 at 15:30 Pantoprazole (Protonix Tab) 40 mg DAILY@06 PO ; Start 11/06/16 at 06:00 ELÍAS CARR MD Nov 05, 2016 17:49
--- NOTE | 2016-11-05 18:10 | PN ---
Date/Time of Note Date/Time of Note DATE: 11/05/16 TIME: 18:07 Assessment/Plan Lines/Catheters IV Catheter Type (from Nrs): Peripheral IV Lin in Place (from Nrs): No Assessment/Plan Assessment/Plan [facility] Progress Note Date of Service: 11/05/16 Today's Impression & Plan: Overall doing well post op without major issues, but with abdominal pain. Not uncommon with cirrhotic patients. No major wound problems. Not ready for d/c home yet. With above assessment, I've recommended the following for today: 1. Keep inhouse 2. Labs in am 3. Increase activity 4. Increase ICS Thank you again for your great care of this very pleasant patient and wonderful family. If there are any questions, please feel free to call me at [phone]. TOTAL VISIT TIME: 20 minutes of which more than half was spent in [id number] discussion with the patient, possibly including family, as well as coordination of care between multiple physicians and providers. Disclaimer: Inadvertent spelling or grammatical errors are likely due to EHR/ dictation software use and do not reflect on the overall quality of patient care. Updated Clinical Summary: Patient is a very pleasant 56-year-old lady with comorbidities of possible cirrhosis as reported by her own account. Admitted through the transfer from an outside hospital to [facility] for concerns for gallbladder disease and possible acute cholecystitis. Liver-CT findings on as listed below. Patient needed cholecystectomy, but this was high risk given her cirrhosis. Never the less, risk of worsening cholecystitis outweighed surgical risk. Attempts were made to schedule with assistance of intraoperative ultrasound to further assess the liver. COMORBIDITIES: 1. BMI 38.7. 2. The patient reports having history of cirrhosis and being treated by Dr. Willam Peñaloza on the outside for the last 15 years. 3. Known cholelithiasis. 4. Diabetes. 5. CT abd/pelvis impression 11/01/16: 1. A few small stones are seen to layer within the gallbladder, the gallbladder is mildly distended and the gallbladder wall is extensively thickened suspicious for cholecystitis. 2. The pancreas is fatty infiltrated and there is a small amount of fluid seen in the peripancreatic bed which could be related to generalized edema, but mild acute pancreatitis cannot be excluded requiring clinical and laboratory correlation. 3. No wall thickening involving the cecum and ascending colon as well as the splenic flexure raising the possibly of colitis. There is no evidence of bowel obstruction. 4. Normal sized cirrhotic appearing liver with no focal lesion. 5. Splenomegaly with varices seen in the splenic hilum. 6. Small amount of free intraperitoneal fluid. No free air is evident. 7. Atherosclerotic vascular calcification. 6. S/p 1. Laparoscopic cholecystectomy (modifier 22) and core needle liver biopsy of segment 5 (3 cores) 11/03/16 Subjective: No major events or complaints; + abd pain and under semi-adequate control with medications; no n/v/d; no sob or cp; + flatus; - BM and normal; + activity Objective: Vitals: See below Exam: GENERAL: On exam, the patient was sitting in a chair and appeared to be comfortable and in no acute distress. ABDOMEN: Soft, nontender and nondistended. Incision dressings removed and incisions are clean, dry and intact without any evidence of erythema, edema, discharge, or hernia. There are no peritoneal signs or guarding. SKIN: Skin appears to be pink and feels warm to touch. NEUROLOGIC: Patient is awake, alert, and follows commands appropriately. Exam/Review of Systems Vital Signs Vitals Vital Signs Date Time Temp Pulse Resp B/P Pulse Ox O2 Delivery O2 Flow Rate FiO2 11/05/16 07:20 98.1 89 16 146/62 97 11/03/16 17:55 Room Air 11/03/16 15:18 8.0 Intake and Output 11/04/16 11/04/16 11/05/16 15:00 23:00 07:00 Intake Total 1000 ml 1180 ml 490 ml Balance 1000 ml 1180 ml 490 ml Results Result Diagram: 11/04/16 0448 11/04/16 0448 DEMARIO JONES M.D. Nov 05, 2016 18:10
--- NOTE | 2016-11-05 20:13 | PN ---
Date/Time of Note Date/Time of Note DATE: 11/05/16 TIME: 20:12 Assessment/Plan VTE Prophylaxis VTE Prophylaxis Intervention: other Lines/Catheters IV Catheter Type (from Nrs): Peripheral IV Urinary Cath still in place: No Assessment/Plan Chief Complaint/Hosp Course 1. Abdominal pain, post op 2. Gallstones, s/p lap radha 3. Diabetes mellitus, hypertension, cholelithiasis, abnormal liver function tests. 4. History of cirrhosis of the liver per record. 5 s/p lap radha Plan pain meds per gi and surgery Problems: Subjective 24 Hr Interval Summary Constitutional: other (abd pain+) Respiratory: no complaints Cardiovascular: no complaints Gastrointestinal: pain (+) Exam/Review of Systems Vital Signs Vitals Vital Signs Date Time Temp Pulse Resp B/P Pulse Ox O2 Delivery O2 Flow Rate FiO2 11/05/16 07:20 98.1 89 16 146/62 97 11/03/16 17:55 Room Air 11/03/16 15:18 8.0 Intake and Output 11/04/16 11/04/16 11/05/16 15:00 23:00 07:00 Intake Total 1000 ml 1180 ml 490 ml Balance 1000 ml 1180 ml 490 ml Exam Neck: supple Respiratory: clear to auscultation Cardiovascular: regular rate and rhythm Gastrointestinal: bowel sounds (+), soft, tender (+) Musculoskeletal: nl extremities to inspection Extremities: normal pulses Results Result Diagram: 11/04/16 0448 11/04/16 0448 Results 24 hrs Laboratory Tests Test 11/04/16 20:39 11/05/16 01:59 11/05/16 07:49 11/05/16 11:57 Bedside Glucose 221 H 188 153 177 Test 11/05/16 17:10 Bedside Glucose 181 Medications Medications Current Medications Lisinopril (Zestril) 10 mg DAILY PO Last administered on 11/05/16 08:32; Admin Dose 10 MG; Start 10/30/16 at 09:00 Ondansetron HCl (Zofran Inj) 4 mg Q6H PRN IV NAUSEA AND/OR VOMITING Last administered on 11/03/16 15:30; Admin Dose 4 MG; Start 10/30/16 at 00:30 Acetaminophen (Tylenol Tab) 650 mg Q6H PRN PO PAIN LEVEL 1-3 OR FEVER; Start at 00:30 Magnesium Hydroxide (Milk Of Mag) 30 ml DAILY PRN PO CONSTIPATION Last administered on 11/04/16 20:43; Admin Dose 30 ML; Start 10/30/16 at 00:30 Bisacodyl (Dulcolax) 5 mg DAILY PRN PO CONSTIPATION; Start 10/30/16 at 00:30 Diagnostic Test (Pha) (Accucheck) 1 ea 02 XX Last administered on 11/05/16 02: 35; Admin Dose 1 EA; Start 10/30/16 at 02:00 Miscellaneous Information 1 ea NOTE XX ; Start 10/30/16 at 01:00 Glucose (Glutose) 15 gm Q15M PRN PO DECREASED GLUCOSE; Start 10/30/16 at 01:00 Glucose (Glutose) 22.5 gm Q15M PRN PO DECREASED GLUCOSE; Start 10/30/16 at 01: 00 Dextrose (D50w Syringe) 25 ml Q15M PRN IV DECREASED GLUCOSE; Start 10/30/16 at 01:00 Dextrose (D50w Syringe) 50 ml Q15M PRN IV DECREASED GLUCOSE; Start 10/30/16 at 01:00 Glucagon (Glucagen) 1 mg Q15M PRN IM DECREASED GLUCOSE; Start 10/30/16 at 01:00 Glucose (Glutose) 15 gm Q15M PRN BUCCAL DECREASED GLUCOSE; Start 10/30/16 at 01 :00 Insulin Glargine (Lantus) 50 unit DAILY@20 SC Last administered on 11/04/16 20 :46; Admin Dose 50 UNIT; Start 11/01/16 at 20:00 Acetaminophen/ Hydrocodone Bitart ([place] (5/325)) 1 tab Q4H PRN PO PAIN LEVEL 4 -7 Last administered on 11/04/16 11:14; Admin Dose 1 TAB; Start 11/03/16 at 15: 30 Acetaminophen/ Hydrocodone Bitart ([place] (5/325)) 2 tab Q4H PRN PO PAIN LEVEL 7 -10 Last administered on 11/05/16 12:52; Admin Dose 2 TAB; Start 11/03/16 at 15 :30 Hydromorphone HCl (Dilaudid) 0.5 mg Q2H PRN IV PAIN; Start 11/03/16 at 15:30 Hydromorphone HCl (Dilaudid) 1 mg Q2H PRN IV PAIN Last administered on 06:26; Admin Dose 1 MG; Start 11/03/16 at 15:30 Docusate Sodium (Colace) 100 mg BID PRN PO CONSTIPATION Last administered on 12:55; Admin Dose 100 MG; Start 11/03/16 at 15:30 Bisacodyl (Dulcolax Supp) 10 mg BID PRN [place] CONSTIPATION; Start 11/03/16 at 15: 30 Sodium Biphosphate/ Sodium Phosphate (Fleet Enema) 133 ml BID PRN [place] CONSTIPATION; Start 11/03/16 at 15:30 Pantoprazole (Protonix Tab) 40 mg DAILY@06 PO ; Start 11/06/16 at 06:00 JAILYN ERNST MD Nov 05, 2016 20:13
[2016-11-05] MEDS: INSULIN GLARGINE [LANtus] 3 ML PEN SC SCH (20:23)
[2016-11-05 20:35] VITALS: BP 120/58; RESP 18
[2016-11-06] MEDS: ACCU-CHEK XX SCH (02:00)
[2016-11-06] MEDS ORDERED: PANTOPRAZOLE (EC) 40 MG TAB PO SCH (06:00)
[2016-11-06 06:05] LABS: ADD SCAN DIFF NO
[2016-11-06 06:10] LABS: BASOPHILS % 0.3 % (0.0-2.0); EOSINOPHILS # 0.1 10^3/ul (0.0-0.5); EOSINOPHILS % 4.6 % (0.0-7.0); HEMATOCRIT 28.5 % (37.0-47.0); HEMOGLOBIN 8.6 g/dl (12.0-16.0); LYMPHOCYTES # 0.7 10^3/ul (0.8-2.9); MEAN CORPUSCULAR HEMOGLOBIN 22.1 pg (29.0-33.0); MEAN CORPUSCULAR HGB CONC 30.2 g/dl (32.0-37.0); MEAN CORPUSCULAR VOLUME 73.1 fl (82.0-101.0); MONOCYTE # 0.3 10^3/ul (0.3-0.9); MONOCYTES % 10.5 % (0.0-11.0); NEUTROPHIL # 1.9 10^3/ul (1.6-7.5); NEUTROPHILS % 62.3 % (39.0-77.0); PLATELET COUNT 133 10^3/UL (140-415); RED CELL DISTRIBUTION WIDTH 18.1 % (11.5-14.5)
[2016-11-06 06:20] LABS: INR 1.13; PROTIME 14.5 Sec (12.2-14.2); PT RATIO 1.1
[2016-11-06 06:21] LABS: ALBUMIN 3.2 g/dl (3.3-4.9); PARTIAL THROMBOPLASTIN TIME 30.6 Sec (25.0-35.0)
[2016-11-06 06:22] LABS: POTASSIUM 3.9 mmol/L (3.5-5.1)
[2016-11-06 06:23] LABS: CREATININE 0.64 mg/dl (0.44-1.00)
[2016-11-06 06:24] LABS: ALBUMIN/GLOBULIN RATIO 0.74; BILIRUBIN,INDIRECT 0.4 mg/dl (0-1.1); BILIRUBIN,TOTAL 0.4 mg/dl (0.2-1.3); PHOSPHORUS 2.7 mg/dl (2.5-4.9); TOTAL PROTEIN 7.5 g/dl (6.1-8.1)
[2016-11-06 06:25] LABS: CALCIUM 8.3 mg/dl (8.4-10.2); MAGNESIUM 1.9 mg/dl (1.7-2.5)
[2016-11-06 07:14] VITALS: BP 132/60; RESP 16
[2016-11-06] MEDS: INSULIN ASPART [NOVOLOG] 3 ML PEN SC SCH ×2 (08:15→13:05)
[2016-11-06] MEDS: LISINOPRIL 10 MG TAB PO SCH (09:27)
--- NOTE | 2016-11-06 10:19 | CONS ---
Date/Time of Note Date/Time of Note DATE: 11/06/16 TIME: 10:18 Assessment/Plan Assessment/Plan Additional Assessment/Plan Assessment/Plan Additional Assessment/Plan IMPRESSION: 1. 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 2. Obesity. 3. Diabetes mellitus. 4. Microcytic hypochromic anemia. 5. Thrombocytopenia. 6. Gallstones. 7. Abdominal pain better 8. Status post laparoscopic cholecystectomy and liver biopsy Plan 1. Continue present care 2. Patient definitely needs EGD for the surveillance of varicose veins, discussed with the patient and has agreed for the procedure 3. surgical follow-up 4 patient will get authorization from primary MD and come to the office for follow-up Consultation Date/Type/Reason Admit Date/Time Oct 29, 2016 at 21:35 24 HR Interval Summary Constitutional: improved, no complaints Exam/Review of Systems Vital Signs Vitals Vital Signs Date Time Temp Pulse Resp B/P Pulse Ox O2 Delivery O2 Flow Rate FiO2 11/06/16 07:14 98.3 83 16 132/60 98 11/03/16 17:55 Room Air 11/03/16 15:18 8.0 Intake and Output 11/05/16 11/05/16 11/06/16 15:00 23:00 07:00 Intake Total 1000 ml 480 ml Balance 1000 ml 480 ml Exam Constitutional: alert, oriented, well developed Psych: nl mood/affect, no complaints Head: atraumatic, normocephalic Eyes: EOMI, PERRL, nl conjunctiva, nl lids, nl sclera ENMT: nl external ears & nose, nl lips & teeth, nl nasal mucosa & septum Neck: non-tender, supple Respiratory: clear to auscultation, normal air movement Cardiovascular: nl pulses, regular rate and rhythm Gastrointestinal: nl liver, spleen, non-tender, soft Musculoskeletal: nl extremities to inspection, nl gait and stance Extremities: normal pulses Neurological: RESIDENTIAL LEASING AGENT II-XII intact, nl mental status, nl speech, nl strength Skin: nl turgor, No rash or lesions Lymph: nl lymph nodes Results Result Diagram: 11/06/16 0530 11/06/16 0530 Results 24 hrs Laboratory Tests Test 11/05/16 11:57 11/05/16 17:10 11/05/16 20:20 11/06/16 02:07 Bedside Glucose 177 181 202 156 Test 11/06/16 05:30 11/06/16 07:38 White Blood Count 3.0 L Red Blood Count 3.90 L Hemoglobin 8.6 L Hematocrit 28.5 L Mean Corpuscular Volume 73.1 L Mean Corpuscular Hemoglobin 22.1 L Mean Corpuscular Hemoglobin Concent 30.2 L Red Cell Distribution Width 18.1 H Platelet Count 133 L Mean Platelet Volume 9.0 Neutrophils % 62.3 Lymphocytes % 22.0 Monocytes % 10.5 Eosinophils % 4.6 Basophils % 0.3 Nucleated Red Blood Cells % 0.0 Neutrophils # 1.9 Lymphocytes # 0.7 L Monocytes # 0.3 Eosinophils # 0.1 Basophils # 0.0 Nucleated Red Blood Cells # 0.0 Prothrombin Time 14.5 H Prothrombin Time Ratio 1.1 INR International Normalized Ratio 1.13 Activated Partial Thromboplast Time 30.6 Sodium Level 137 Potassium Level 3.9 Chloride Level 106 Carbon Dioxide Level 24 Anion Gap 11 Blood Urea Nitrogen 8 Creatinine 0.64 Glucose Level 137 Lactic Acid Level 1.0 Calcium Level 8.3 L Phosphorus Level 2.7 Magnesium Level 1.9 Total Bilirubin 0.4 Direct Bilirubin 0.00 Indirect Bilirubin 0.4 Aspartate Amino Transf (AST/SGOT) 48 H Alanine Aminotransferase (ALT/SGPT) 37 Alkaline Phosphatase 98 B-Type Natriuretic Peptide 32 Total Protein 7.5 Albumin 3.2 L Globulin 4.30 H Albumin/Globulin Ratio 0.74 Bedside Glucose 173 Medications Medications Current Medications Lisinopril (Zestril) 10 mg DAILY PO Last administered on 11/06/16 09:27; Admin Dose 10 MG; Start 10/30/16 at 09:00 Ondansetron HCl (Zofran Inj) 4 mg Q6H PRN IV NAUSEA AND/OR VOMITING Last administered on 11/03/16 15:30; Admin Dose 4 MG; Start 10/30/16 at 00:30 Acetaminophen (Tylenol Tab) 650 mg Q6H PRN PO PAIN LEVEL 1-3 OR FEVER; Start at 00:30 Magnesium Hydroxide (Milk Of Mag) 30 ml DAILY PRN PO CONSTIPATION Last administered on 11/04/16 20:43; Admin Dose 30 ML; Start 10/30/16 at 00:30 Bisacodyl (Dulcolax) 5 mg DAILY PRN PO CONSTIPATION; Start 10/30/16 at 00:30 Diagnostic Test (Pha) (Accucheck) 1 ea 02 XX Last administered on 11/05/16 02: 35; Admin Dose 1 EA; Start 10/30/16 at 02:00 Miscellaneous Information 1 ea NOTE XX ; Start 10/30/16 at 01:00 Glucose (Glutose) 15 gm Q15M PRN PO DECREASED GLUCOSE; Start 10/30/16 at 01:00 Glucose (Glutose) 22.5 gm Q15M PRN PO DECREASED GLUCOSE; Start 10/30/16 at 01: 00 Dextrose (D50w Syringe) 25 ml Q15M PRN IV DECREASED GLUCOSE; Start 10/30/16 at 01:00 Dextrose (D50w Syringe) 50 ml Q15M PRN IV DECREASED GLUCOSE; Start 10/30/16 at 01:00 Glucagon (Glucagen) 1 mg Q15M PRN IM DECREASED GLUCOSE; Start 10/30/16 at 01:00 Glucose (Glutose) 15 gm Q15M PRN BUCCAL DECREASED GLUCOSE; Start 10/30/16 at 01 :00 Insulin Glargine (Lantus) 50 unit DAILY@20 SC Last administered on 11/05/16 20 :23; Admin Dose 50 UNIT; Start 11/01/16 at 20:00 Acetaminophen/ Hydrocodone Bitart ([place] (5/325)) 1 tab Q4H PRN PO PAIN LEVEL 4 -7 Last administered on 11/04/16 11:14; Admin Dose 1 TAB; Start 11/03/16 at 15: 30 Acetaminophen/ Hydrocodone Bitart ([place] (5/325)) 2 tab Q4H PRN PO PAIN LEVEL 7 -10 Last administered on 11/05/16 12:52; Admin Dose 2 TAB; Start 11/03/16 at 15 :30 Hydromorphone HCl (Dilaudid) 0.5 mg Q2H PRN IV PAIN; Start 11/03/16 at 15:30 Hydromorphone HCl (Dilaudid) 1 mg Q2H PRN IV PAIN Last administered on 06:26; Admin Dose 1 MG; Start 11/03/16 at 15:30 Docusate Sodium (Colace) 100 mg BID PRN PO CONSTIPATION Last administered on 12:55; Admin Dose 100 MG; Start 11/03/16 at 15:30 Bisacodyl (Dulcolax Supp) 10 mg BID PRN ID CONSTIPATION; Start 11/03/16 at 15: 30 Sodium Biphosphate/ Sodium Phosphate (Fleet Enema) 133 ml BID PRN ID CONSTIPATION; Start 11/03/16 at 15:30 Pantoprazole (Protonix Tab) 40 mg DAILY@06 PO Last administered on 11/06/16t 05 :27; Admin Dose 40 MG; Start 11/06/16 at 06:00 ELÍAS CARR MD Nov 06, 2016 10:19
--- NOTE | 2016-11-06 16:52 | PN ---
Date/Time of Note Date/Time of Note DATE: 11/06/16 TIME: 16:50 Assessment/Plan Lines/Catheters IV Catheter Type (from Nrs): Peripheral IV Lin in Place (from Nrs): No Assessment/Plan Assessment/Plan [facility] Progress Note Date of Service: 11/06/16 Today's Impression & Plan: Overall doing well post op without major issues. No further issues with , abdominal pain. No major wound problems. Labs look great. Ok to d/c. With above assessment, I've recommended the following for today: 1. D/c home 2. Please include the following in patient's d/c instructions: Please call [phone] if any of fever, nausea, vomiting, discharge from wound , wound redness, increase or sudden pain, blood in stool or vomit, or any other unusual signs or symptoms. Also, please call the same number in a few days to schedule an appointment for your follow up visit. Patient may remove dressings tomorrow. Showers OK starting tomorrow. No swimming , hot tub or bath for 2 weeks. No lifting more than 25 lbs for 8 weeks. Thank you again for your great care of this very pleasant patient and wonderful family. If there are any questions, please feel free to call me at [phone]. TOTAL VISIT TIME: 20 minutes of which more than half was spent in [id number] discussion with the patient, possibly including family, as well as coordination of care between multiple physicians and providers. Disclaimer: Inadvertent spelling or grammatical errors are likely due to EHR/ dictation software use and do not reflect on the overall quality of patient care. Updated Clinical Summary: Patient is a very pleasant 56-year-old lady with comorbidities of possible cirrhosis as reported by her own account. Admitted through the transfer from an outside hospital to [facility] for concerns for gallbladder disease and possible acute cholecystitis. Liver-CT findings on as listed below. Patient needed cholecystectomy, but this was high risk given her cirrhosis. Never the less, risk of worsening cholecystitis outweighed surgical risk. Attempts were made to schedule with assistance of intraoperative ultrasound to further assess the liver. COMORBIDITIES: 1. BMI 38.7. 2. The patient reports having history of cirrhosis and being treated by Dr. Willam Peñaloza on the outside for the last 15 years. 3. Known cholelithiasis. 4. Diabetes. 5. CT abd/pelvis impression 11/01/16: 1. A few small stones are seen to layer within the gallbladder, the gallbladder is mildly distended and the gallbladder wall is extensively thickened suspicious for cholecystitis. 2. The pancreas is fatty infiltrated and there is a small amount of fluid seen in the peripancreatic bed which could be related to generalized edema, but mild acute pancreatitis cannot be excluded requiring clinical and laboratory correlation. 3. No wall thickening involving the cecum and ascending colon as well as the splenic flexure raising the possibly of colitis. There is no evidence of bowel obstruction. 4. Normal sized cirrhotic appearing liver with no focal lesion. 5. Splenomegaly with varices seen in the splenic hilum. 6. Small amount of free intraperitoneal fluid. No free air is evident. 7. Atherosclerotic vascular calcification. 6. S/p 1. Laparoscopic cholecystectomy (modifier 22) and core needle liver biopsy of segment 5 (3 cores) 11/03/16 Subjective: No major events or complaints; no further abd pain and under adequate control with medications; no n/v/d; no sob or cp; + flatus; - BM and normal; + activity Objective: Vitals: See below Exam: GENERAL: On exam, the patient was sitting in a chair and appeared to be comfortable and in no acute distress. ABDOMEN: Soft, nontender and nondistended. Incision dressings are clean, dry and intact without any evidence of erythema, edema, discharge, or hernia. There are no peritoneal signs or guarding. SKIN: Skin appears to be pink and feels warm to touch. NEUROLOGIC: Patient is awake, alert, and follows commands appropriately. Exam/Review of Systems Vital Signs Vitals Vital Signs Date Time Temp Pulse Resp B/P Pulse Ox O2 Delivery O2 Flow Rate FiO2 11/06/16 07:14 98.3 83 16 132/60 98 11/03/16 17:55 Room Air 11/03/16 15:18 8.0 Intake and Output 11/05/16 11/05/16 11/06/16 15:00 23:00 07:00 Intake Total 1000 ml 480 ml Balance 1000 ml 480 ml Results Result Diagram: 11/06/16 0530 11/06/1630 DEMARIO JONES M.D. Nov 06, 2016 16:52
== END 2016-11-06 18:15 | disposition home or self-care (01) | DRG 418 ==
LOC: MS2 21:35
PROVIDERS: ADMIT Internal Medicine Nephrology; ATTEND Internal Medicine Nephrology
PROC: 0FB04ZX Excision of Liver, Percutaneous Endoscopic Approach, Diagnostic (ICD-10-PCS; 2016-11-03)
PROC: 30233N1 Transfusion of Nonautologous Red Blood Cells into Peripheral Vein, Percutaneous Approach (ICD-10-PCS; 2016-11-03)
PROC: 0FT44ZZ Resection of Gallbladder, Percutaneous Endoscopic Approach (ICD-10-PCS; principal; 2016-11-03 13:30)
DX: K80.10 Calculus of gallbladder with chronic cholecystitis without obstruction (principal); K76.6 Portal hypertension; R18.8 Other ascites; K74.69 Other cirrhosis of liver; D69.6 Thrombocytopenia, unspecified; K75.81 Nonalcoholic steatohepatitis (NASH); E11.9 Type 2 diabetes mellitus without complications; I10 Essential (primary) hypertension; I86.8 Varicose veins of other specified sites; D50.8 Other iron deficiency anemias; E66.9 Obesity, unspecified; Z68.38 Body mass index [BMI] 38.0-38.9, adult
CPT/HCPCS: 36430; 74178; 80053; 82270; 82962; 83605; 83735; 83880; 84100; 85025; 85610; 85730; 86704; 86709; 86803; 86850; 86900; 86901; 86920; 87340; 88304; 88307; 88313; 97116; 97161; C9113; J0330; J1170; J1644; J1815; J2370; J2405; J2710; J2795; J3010; J3480; J7042; P9016; Q9967

== ENCOUNTER 2016-11-26 09:28 | Outpatient (CLI) | payer OTHER ==
[~2016-11-26] VITALS: Ht 165.1 cm; Wt 95.9 kg
[~2016-11-26 09:28] MED LIST changes: +BISA10SU75 PR
[2016-11-26 10:01] VITALS: BP 135/63; PULSE 81; RESP 18; Ht 165.1 cm; Wt 95.9 kg
--- NOTE | 2016-11-26 10:43 | PN ---
Date/Time of Note Date/Time of Note DATE: 11/26/16 TIME: 10:37 Assessment/Plan Assessment/Plan Assessment/Plan [facility] Progress Note Date of Service: 11/26/16 Today's Impression & Plan: Overall doing well post op without major issues. No major wound problems or obvious post operative complications after high risk surgery. Liver biopsy confirmed presence of cirrhosis. Reviewed with patient and answered all questions. With above assessment, I've recommended the following for today: 1. F/u with Dr. Beaver. 2. F/u with PCP 3. F/u with us prn Thank you again for your great care of this very pleasant patient and wonderful family. If there are any questions, please feel free to call me at [phone]. TOTAL VISIT TIME: 20 minutes of which more than half was spent in [id number] discussion with the patient, possibly including family, as well as coordination of care between multiple physicians and providers. Disclaimer: Inadvertent spelling or grammatical errors are likely due to EHR/ dictation software use and do not reflect on the overall quality of patient care. Updated Clinical Summary: Patient is a very pleasant 56-year-old lady with comorbidities of possible cirrhosis as reported by her own account. Admitted through transfer from an outside hospital to [facility] for concerns for gallbladder disease and possible acute cholecystitis 10/30/16. S/p lap radha with liver biopsy 11/03/16 for chronic cholecystitis and cholelithiasis in the setting of liver cirrhosis (likely secondary to high BMI) with mild to moderate macrovesicular steatosis. COMORBIDITIES: 1. BMI 38.7. 2. The patient reports having history of cirrhosis and being treated by Dr. Willam Peñaloza on the outside for the last 15 years. 3. Known cholelithiasis. 4. Diabetes. 5. CT abd/pelvis impression 11/01/16: 1. A few small stones are seen to layer within the gallbladder, the gallbladder is mildly distended and the gallbladder wall is extensively thickened suspicious for cholecystitis. 2. The pancreas is fatty infiltrated and there is a small amount of fluid seen in the peripancreatic bed which could be related to generalized edema, but mild acute pancreatitis cannot be excluded requiring clinical and laboratory correlation. 3. No wall thickening involving the cecum and ascending colon as well as the splenic flexure raising the possibly of colitis. There is no evidence of bowel obstruction. 4. Normal sized cirrhotic appearing liver with no focal lesion. 5. Splenomegaly with varices seen in the splenic hilum. 6. Small amount of free intraperitoneal fluid. No free air is evident. 7. Atherosclerotic vascular calcification. 6. S/p 1. Laparoscopic cholecystectomy (modifier 22) and core needle liver biopsy of segment 5 (3 cores) 11/03/16 for chronic cholecystitis and cholelithiasis in the setting of liver cirrhosis (likely secondary to high BMI) with mild to moderate macrovesicular steatosis. Subjective: No major events or complaints since d/c home; minor abd discomfort in the lower quadrants; no n/v/d; no sob or cp; + flatus; + BM and normal; + activity Objective: Vitals: See below Exam: GENERAL: On exam, the patient was sitting in a chair and appeared to be comfortable and in no acute distress. ABDOMEN: Soft, nontender and nondistended. Incisions are clean, dry and intact without any evidence of erythema, edema, discharge, or hernia. There are no peritoneal signs or guarding. SKIN: Skin appears to be pink and feels warm to touch. NEUROLOGIC: Patient is awake, alert, and follows commands appropriately. Exam/Review of Systems Vital Signs Vitals Vital Signs Date Time Temp Pulse Resp B/P Pulse Ox O2 Delivery O2 Flow Rate FiO2 11/26/16 10:01 97.9 81 18 135/63 96 Room Air DEMARIO JONES M.D. Nov 26, 2016 10:43
== END 2016-11-26 16:29 | disposition home or self-care (01) ==
LOC: HPC 09:28
PROVIDERS: ATTEND Transplant Surgery
DX: Z09 Encounter for follow-up examination after completed treatment for conditions other than malignant neoplasm (principal); K74.60 Unspecified cirrhosis of liver; Z90.49 Acquired absence of other specified parts of digestive tract; Z87.19 Personal history of other diseases of the digestive system; K86.89 Other specified diseases of pancreas; E11.9 Type 2 diabetes mellitus without complications; R16.1 Splenomegaly, not elsewhere classified; I70.90 Unspecified atherosclerosis
CPT/HCPCS: G0463

== ENCOUNTER 2017-06-04 12:07 | Emergency (ER) | payer OTHER ==
[~2017-06-04] VITALS: Ht 157.5 cm; Wt 93.0 kg
[2017-06-04 12:09] VITALS: Ht 157.5 cm; Wt 93.0 kg
[2017-06-04] MEDS ORDERED: LIDOCAINE/MYLANTA 40 ML BTL PO STA ×2 (14:25→15:50)
[2017-06-04] MEDS ORDERED: ONDANSETRON 4 MG INJ IV STA (14:25)
[2017-06-04] MEDS ORDERED: FAMOTIDINE 20 MG INJ IV STA (14:25)
[2017-06-04] MEDS ORDERED: morphine 4 MG/ML VIAL IV STA (14:25)
[2017-06-04] MEDS ORDERED: SOD CHLORIDE 0.9% 1,000 ML IV STA (14:25)
[2017-06-04] MEDS ORDERED: INSU200I SQ (15:07)
[2017-06-04] MEDS ORDERED: INSU300I SQ (15:08)
[2017-06-04 15:09] LABS: BASOPHILS % 0.2 % (0.0-2.0); EOSINOPHILS # 0.1 10^3/ul (0.0-0.5); EOSINOPHILS % 3.2 % (0.0-7.0); HEMATOCRIT 34.2 % (37.0-47.0); HEMOGLOBIN 11.3 g/dl (12.0-16.0); LYMPHOCYTES # 1.1 10^3/ul (0.8-2.9); LYMPHOCYTES % 26.2 % (15.0-51.0); MEAN CORPUSCULAR HEMOGLOBIN 27.6 pg (29.0-33.0); MEAN CORPUSCULAR VOLUME 83.4 fl (82.0-101.0); MEAN PLATELET VOLUME 9.1 fl (7.4-10.4); MONOCYTE # 0.3 10^3/ul (0.3-0.9); MONOCYTES % 8.4 % (0.0-11.0); NEUTROPHIL # 2.5 10^3/ul (1.6-7.5); NEUTROPHILS % 61.8 % (39.0-77.0); PLATELET COUNT 160 10^3/UL (140-415); RED CELL DISTRIBUTION WIDTH 15.8 % (11.5-14.5)
[2017-06-04] MEDS ORDERED: FER325 PO (15:09)
[2017-06-04] MEDS ORDERED: OMEP40CA6 PO (15:10)
[2017-06-04] MEDS ORDERED: SIMV20TA PO (15:10)
[2017-06-04 15:16] LABS: ADD UMIC YES; UR ASCORBIC ACID NEGATIVE (NEGATIVE); UR BILIRUBIN (Dip) NEGATIVE (NEGATIVE); UR BLOOD (Dip) NEGATIVE (NEGATIVE); UR CLARITY CLEAR (CLEAR); UR COLOR YELLOW (YELLOW); UR GLUCOSE (Dip) NEGATIVE (NEGATIVE); UR KETONES (Dip) NEGATIVE (NEGATIVE); UR LEUKOCYTE ESTERASE (Dip) TRACE Leu/ul (NEGATIVE); UR NITRITE (Dip) NEGATIVE (NEGATIVE); UR RBC 1 /HPF (0-5); UR SPECIFIC GRAVITY (Dip) 1.004 (1.003-1.030); UR TOTAL PROTEIN (Dip) NEGATIVE (NEGATIVE); UR UROBILINOGEN (Dip) NEGATIVE (NEGATIVE)
[2017-06-04 15:39] LABS: ALBUMIN 3.5 g/dl (3.3-4.9); ALBUMIN/GLOBULIN RATIO 0.63; BILIRUBIN,INDIRECT 0.3 mg/dl (0-1.1); BILIRUBIN,TOTAL 0.3 mg/dl (0.2-1.3); CREATININE 0.65 mg/dl (0.44-1.00); POTASSIUM 4.2 mmol/L (3.5-5.1)
--- NOTE | 2017-06-04 15:55 | ERD ---
ER Documentation Chief Complaint Chief Complaint abdominal pain x 2 weekss HPI This is a 67-year-old female who presents to the emergency room for evaluation of abdominal pain. The patient states she has had abdominal pain for the past 2 weeks and localizes the abdominal pain to the midportion of the abdomen. She describes as a burning sensation and achy sensation with no radiation. She denies any vomiting but does say she has had some nausea associated with this. The patient states that she has had a gallbladder removed and came to the ER today for evaluation of her symptoms. She denies any aggravating or relieving factors for her pain ROS All systems reviewed and are negative except as per history of present illness. Medications Home Meds Reported Medications Omeprazole* (Omeprazole*) 40 Mg Capsule.dr, 40 MG PO DAILY, #30 CAP 06/04/17 Simvastatin* (Zocor*) 20 Mg Tablet, 20 MG PO QHS, #30 TAB 06/04/17 Ferrous Sulfate* (Ferrous Sulfate*) 325 Mg Tabec, 325 MG PO BID, TAB 06/04/17 Insulin Glargine,Hum.rec.anlog (Toujeo Solostar) 300 Unit/1 Ml Insuln.pen, 90 UNIT SQ QHS 06/04/17 Insulin Lispro (Humalog Kwikpen) 200 Unit/1 Ml Insuln.pen, 0 SQ TID, EA TAKE 23 UNITS-QAM AND NOON, 30 UNITS-QPM 06/04/17 Discontinued Reported Medications Omeprazole* (Omeprazole*) 20 Mg Capsule.dr, 20 MG PO DAILY, #30 CAP 01/04/16 Lisinopril* (Lisinopril*) 10 Mg Tablet, 10 MG PO DAILY, #30 TAB 01/04/16 Insulin Lispro (Humalog) 100 U/Ml Cartridge, 0 SC SLIDING SCALE AC Y for tid, EA 01/22/15 Insulin Glargine* (Lantus*) 100 Unit/Ml Soln, 1 UNIT SC HS for ELEVATED GLUCOSE , EA 01/22/15 Discontinued Scripts Bisacodyl* (Bisacodyl*) 10 Mg Supp, 10 MG GA BID Y for CONSTIPATION for 14 Days , SUPP Prov:JAILYN ERNST MD 11/04/16 Allergies Allergies: Coded Allergies: No Known Drug Allergies (Verified Allergy, Unknown, 06/04/17) PMhx/Soc History of Surgery: No Anesthesia Reaction: No Hx Neurological Disorder: Yes (DIABETIC NEUROPATHY) Hx Respiratory Disorders: No Hx Cardiac Disorders: Yes (HHYPERTENSION, HYPERLIPIDEMIA) Hx Psychiatric Problems: No Hx Miscellaneous Medical Probl: Yes (DM, gastritis, cirrhosis) Hx Alcohol Use: No Hx Substance Use: No Hx Tobacco Use: No Smoking Status: Never smoker Physical Exam Vitals Vital Signs Date Time Temp Pulse Resp B/P Pulse Ox O2 Delivery O2 Flow Rate FiO2 06/04/17 12:09 98.6 98 20 140/69 99 Physical Exam INITIAL VITAL SIGNS: Reviewed by me GENERAL: The patient is well developed and appropriate for usual state of health in no apparent distress HEENT: Pupils equal, round, and reactive to light. EOMI. There is no scleral icterus. NECK: C-spine is soft and supple, there is no meningismus. There is no cervical lymphadenopathy. LUNGS: Clear to auscultation bilaterally. There are no rales, wheezes or rhonchi. HEART: Regular rate and rhythm, no murmurs, clicks, rubs or gallops. ABDOMEN: Epigastric tenderness to palpation, negative Squires sign, otherwise soft, non-tender, non-distended. There are bowel sounds in all four quadrants. No rebound or guarding. EXTREMITIES: There is no peripheral cyanosis or edema. No focal swelling or erythema. NEUROLOGICAL: The patient moves all four extremities with 5/5 strength. Cranial nerves II - XII are intact. Normal gait. Alert and oriented SKIN: There is no apparent rash or petechiae. HEME/LYMPHATIC: There is no evidence of excessive bruising or lymphedema. PSYCHIATRIC: The patient does not appear anxious or depressed. Result Diagram: 06/04/17 1458 06/04/17 1458 Results 24 hrs Laboratory Tests Test 06/04/17 14:58 White Blood Count 4.010^3/ul Red Blood Count 4.1010^6/ul Hemoglobin 11.3g/dl Hematocrit 34.2% Mean Corpuscular Volume 83.4fl Mean Corpuscular Hemoglobin 27.6pg Mean Corpuscular Hemoglobin Concent 33.0g/dl Red Cell Distribution Width 15.8% Platelet Count 22356^3/UL Mean Platelet Volume 9.1fl Neutrophils % 61.8% Lymphocytes % 26.2% Monocytes % 8.4% Eosinophils % 3.2% Basophils % 0.2% Nucleated Red Blood Cells % 0.0/100WBC Neutrophils # 2.510^3/ul Lymphocytes # 1.110^3/ul Monocytes # 0.310^3/ul Eosinophils # 0.110^3/ul Basophils # 0.010^3/ul Nucleated Red Blood Cells # 0.010^3/ul Urine Color YELLOW Urine Clarity CLEAR Urine pH 9.0 Urine Specific [place] 1.004 Urine Ketones NEGATIVEmg/dL Urine Nitrite NEGATIVEmg/dL Urine Bilirubin NEGATIVEmg/dL Urine Urobilinogen NEGATIVEmg/dL Urine Leukocyte Esterase TRACELeu/ul Urine Microscopic RBC 1/HPF Urine Microscopic WBC 6/HPF Urine Hemoglobin NEGATIVEmg/dL Urine Glucose NEGATIVEmg/dL Urine Total Protein NEGATIVEmg/dl Sodium Level 142mmol/L Potassium Level 4.2mmol/L Chloride Level 109mmol/L Carbon Dioxide Level 27mmol/L Anion Gap 10 Blood Urea Nitrogen 3mg/dl Creatinine 0.65mg/dl Glucose Level 85mg/dl Calcium Level 9.0mg/dl Total Bilirubin 0.3mg/dl Direct Bilirubin 0.00mg/dl Indirect Bilirubin 0.3mg/dl Aspartate Amino Transf (AST/SGOT) 91IU/L Alanine Aminotransferase (ALT/SGPT) 73IU/L Alkaline Phosphatase 103IU/L Total Protein 9.0g/dl Albumin 3.5g/dl Globulin 5.50g/dl Albumin/Globulin Ratio 0.63 Lipase 63U/L Current Medications Medications (Trade) Dose Ordered Sig/Kareem Route PRN Reason Start Time Stop Time Status Last Admin Dose Admin Sodium Chloride (NS) 1,000 ml @ 1,000 mls/hr Q1H STAT IV 06/04/17 14:25 06/04/17 15:24 DC 06/04/17 15:03 Morphine Sulfate (morphine) 4 mg ONCE STAT IV 06/04/17 14:25 06/04/17 14:26 DC 06/04/17 15:03 Ondansetron HCl (Zofran Inj) 4 mg ONCE STAT IV 06/04/17 14:25 06/04/17 14:26 DC 06/04/17 15:03 Famotidine (Pepcid Iv) 20 mg ONCE STAT IV 06/04/17 14:25 06/04/17 14:26 DC 06/04/17 15:03 Miscellaneous Medication (Gi Cocktail (2)) 40 ml ONCE STAT PO 06/04/17 14:25 06/04/17 14:26 DC 06/04/17 15:03 Procedures/MDM This 57-year-old female presents to the ER for evaluation of abdominal pain. The patient had epigastric tenderness on my examination. Lab work was obtained including urinalysis which does show some white blood cells in her urine. The patient was given morphine, Pepcid, and GI cocktail. She states that her pain is improved. There is no distention, and no need for imaging at this time as this patient has bowel sounds in all 4 quadrants and I doubt obstruction at this time. This patient will be discharged with a prescription for Zantac for gastritis. She was advised she can return to the ER for evaluation and any point for pain did not improve and she verbalized understanding and is okay with her plan of care. Differential diagnoses entertained was broad with potential high acuity. Patient has been evaluated for appendicitis, cholecystitis, and other high risk medical and surgical causes of abdominal pain. Ultimately the patient's evaluation is nondiagnostic. Based on the patient's lack of risk factors, as well as the patient's clinical, laboratory, and imaging data, the patient appears to be low risk for these high risk causes of abdominal pain. Departure Diagnosis: Primary Impression: Acute gastritis Additional Impressions: Abdominal pain Cystitis Condition: Stable LISHA DAWKINS DO Jun 04, 2017 15:55
[2017-06-04] MEDS ORDERED: RANI150T9 PO (15:56)
[2017-06-04] MEDS ORDERED: CIPR500T4 PO (15:56)
[2017-06-04 16:24] VITALS: BP 134/79; PULSE 74; RESP 20; TEMP 98.6
== END 2017-06-04 16:26 | disposition home or self-care (01) ==
LOC: E/R 12:07
DX: K29.00 Acute gastritis without bleeding (principal); N30.90 Cystitis, unspecified without hematuria; E11.9 Type 2 diabetes mellitus without complications; Z79.4 Long term (current) use of insulin
CPT/HCPCS: 36415; 80053; 81001; 83690; 85025; 96374; 96375; J2270; J2405; J7030; Z7502; Z7610

== ENCOUNTER 2017-07-10 11:44 | Day surgery (SDC) | payer OTHER ==
[~2017-07-10] VITALS: Ht 160 cm; Wt 92.9 kg
[~2017-07-10 11:44] MED LIST changes: -BISA10SU75 PR; +CIPR500T4 PO; +FER325 PO; -INSU100C SC; +INSU200I SQ; +INSU300I SQ; -LANT3I SC; -LISI10TA2 PO; -OMEP20CA16 PO; +OMEP40CA6 PO; +RANI150T9 PO; +SIMV20TA PO
[2017-07-10 12:30] VITALS: Ht 160 cm; Wt 92.9 kg
[2017-07-10 13:03] VITALS: BP 133/88; PULSE 71; RESP 20
[2017-07-10] MEDS ORDERED: PROPOFOL 20 ML ONE (13:28)
--- NOTE | 2017-07-10 13:49 | OPPN ---
Date/Time of Note Date/Time of Note DATE: 07/10/17 TIME: 13:46 Follow-up as outpatient Operative Report Preoperative Diagnosis Follow-up for hepatitis C for EGD to rule out varices Postoperative Diagnosis Grade 1 esophageal varices not bleeding no red spots portal hypertensive gastropathy Operation/Procedure Performed EGD Surgeon see signature line engineering assistant DR PEDRAZA Second assist: CHRISTY PEDRAZA MD Anesthesia: MAC Estimated blood loss: none Transfusion Required none Specimen None Grafts/Implants none Complications none ALDO LEDESMA MD Jul 10, 2017 13:49
--- NOTE | 2017-07-10 13:49 | GILP ---
DATE OF PROCEDURE: 07/10/2017 PREOPERATIVE DIAGNOSIS: History of hepatitis C. This is an EGD to evaluate for varices. PROCEDURE DONE: Esophagogastroduodenoscopy with anesthesia. POSTOPERATIVE DIAGNOSIS: Grade I distal esophageal varices, not bleeding, mild portal hypertensive gastropathy, some nodularity in the antrum, normal duodenum. DESCRIPTION OF PROCEDURE: The patient was put in left lateral decubitus after obtaining informed consent. The patient was monitored and the anesthesiologist sedated the patient. Very carefully, Olympus video upper endoscope was advanced into the esophagus, stomach and duodenum up to second part. Examination of the duodenum, duodenal bulb, first and second part normal. In the antrum, there was some nodularity, but due to portal hypertension biopsy was not done here. Portal hypertensive gastropathy noted. No gastric varices noted. In the distal esophagus there was grade I esophageal varices, not bleeding. No recent stigmata of GI bleed. Proximal and mid esophagus normal. Upon removal of scope, patient had no complications. RECOMMENDATIONS: In case she were to bleed, consider banding of these varices. Meanwhile, follow the patient closely for H and H, and also hepatitis C therapy will be done as outpatient with the musical instruments assembler. Dictated By: ALDO SCHULER Conf#: [id number] DID#: [id number] CC: GLADYS ARAGON MD;*EndCC* [facility]
[2017-07-10 14:15] VITALS: BP 135/66; PULSE 63; RESP 22
== END 2017-07-10 16:55 | disposition home or self-care (01) ==
LOC: GIL 11:44
PROVIDERS: ATTEND Internal Medicine
DX: K76.6 Portal hypertension (principal); K31.89 Other diseases of stomach and duodenum; E11.9 Type 2 diabetes mellitus without complications
CPT/HCPCS: 43239; 82962; Z7610

== ENCOUNTER 2017-09-04 10:56 | Day surgery (SDC) | END 2017-09-04 16:21 | disposition home or self-care (01) ==

== ENCOUNTER 2018-04-23 11:18 | Emergency (ER) | END 2018-04-23 15:08 | disposition home or self-care (01) ==

== ENCOUNTER 2019-01-06 11:54 | Emergency (ER) | payer OTHER ==
[~2019-01-06] VITALS: Ht 152.4 cm; Wt 93.1 kg
[~2019-01-06 11:54] MED LIST changes: +AZIT250T PO; -CIPR500T4 PO; +RANI150T35 PO; -RANI150T9 PO
[2019-01-06 12:00] VITALS: BP 145/65; PULSE 90; RESP 22; Ht 152.4 cm; Wt 93.1 kg
[2019-01-06] MEDS ORDERED: FAMOTIDINE 20 MG INJ IV STA (14:18)
[2019-01-06] MEDS ORDERED: LIDOCAINE/MYLANTA 40 ML BTL PO STA (14:18)
--- NOTE | 2019-01-06 14:31 | ERD ---
ER Documentation Chief Complaint Chief Complaint epigastric pain x3days with nausea and headache HPI During the patient's encounter translation services were utilized Language: Danish Source: In person 58-year-old female with known history of gastritis and reflux who presents to the emergency room with approximately 3 days of epigastric abdominal pain that is postprandial and worse with pressure to the epigastrium. She does describe some mild nausea. Occasional headaches. She describes prior history of cholecystectomy. She denies any chest pressure or exertional symptoms. No fevers or chills. No mid back pain or lower abdominal discomfort. She states this feels very similar to dyspepsia in the past. Home remedies not working. ROS All systems reviewed and are negative except as per history of present illness. Medications Home Meds Active Scripts Sucralfate* (Carafate*) 1 Gm Tab, 1 GM PO WITH MEALS for 30 Days, TAB Prov:ROSI MARTINEZ MD 01/06/19 Reported Medications Furosemide* (Furosemide*) 20 Mg Tablet, 20 MG PO DAILY, #60 TAB 01/06/19 Insulin Lispro (Humalog Kwikpen U-100) 100 Unit/1 Ml Insuln.pen, 30 UNIT SQ TID, EA 01/06/19 Omeprazole* (Omeprazole*) 40 Mg Capsule.dr, 40 MG PO DAILY, #30 CAP 01/06/19 Insulin Glargine,Hum.rec.anlog (Toujeo Solostar) 300 Unit/1 Ml Insuln.pen, 90 UNIT SQ QHS, EA 01/06/19 Ferrous Sulfate* (Ferrous Sulfate*) 325 Mg Tabec, 325 MG PO BID, TAB 01/06/19 Discontinued Reported Medications Insulin Lispro (Humalog) 100 Unit/1 Ml Cartridge, 30 UNIT SQ TID, EA 01/06/19 Omeprazole* (Omeprazole*) 40 Mg Capsule.dr, 40 MG PO DAILY, #30 CAP 06/04/17 Simvastatin* (Zocor*) 20 Mg Tablet, 20 MG PO QHS, #30 TAB 06/04/17 Ferrous Sulfate* (Ferrous Sulfate*) 325 Mg Tabec, 325 MG PO BID, TAB 06/04/17 Insulin Glargine,Hum.rec.anlog (Toujeo Solostar) 300 Unit/1 Ml Insuln.pen, 90 UNIT SQ QHS 06/04/17 Insulin Lispro (Humalog Kwikpen) 200 Unit/1 Ml Insuln.pen, 0 SQ TID, EA TAKE 23 UNITS-QAM AND NOON, 30 UNITS-QPM 06/04/17 Discontinued Scripts Azithromycin* (Zithromax*) 250 Mg Tablet, 250 MG PO .ZPACK DIRECTED, #6 TAB TAKE 500 MG (2 TABS) THE FIRST DAY THEN 250 MG (1 TAB) DAYS 2-5 Prov:LISHA DAWKINS DO 04/23/18 Ranitidine Hcl* (Zantac*) 150 Mg Tablet, 150 MG PO BID PRN for EPIGASTRIC PAIN, #30 TAB Prov:LISHA DAWKINS DO 06/04/17 Allergies Allergies: Coded Allergies: No Known Drug Allergies (Verified Allergy, Unknown, 01/06/19) PMhx/Soc History of Surgery: Yes (CHOLECYSECTOMY) Anesthesia Reaction: No Hx Neurological Disorder: No Hx Respiratory Disorders: No Hx Cardiac Disorders: Yes (HTN) Hx Psychiatric Problems: No Hx Miscellaneous Medical Probl: Yes (ANEMIA, DM, CIRRHOSIS) Hx Alcohol Use: No Hx Substance Use: No Hx Tobacco Use: No Smoking Status: Never smoker FmHx Family History: No diabetes Physical Exam Vitals Vital Signs Date Temp Pulse Resp B/P (MAP) Pulse Ox O2 O2 Flow FiO2 Time Delivery Rate 01/06/19 98.4 90 22 145/65 98 12:00 (91) Physical Exam General: Well developed, well nourished, no acute distress Head: Normocephalic, atraumatic. Eyes: Pupils equally reactive, EOM intact ENT: Moist mucous membranes Neck: Supple, no lymphadenopathy Respiratory: Lungs clear bilaterally, no distress Cardiovascular: RRR, no murmurs, rubs, or gallops Abdominal: Soft, mild epigastric abdominal tenderness without rebound or gu arding. No tenderness to McBurney's point, negative Squires sign : Deferred MSK: No edema, no unilateral swelling, 5/5 strength Neurologic: Alert and oriented, moving all extremities, normal speech, no focal weakness, no cerebellar signs Skin: No rash Psych: Normal mood Result Diagram: 01/06/19 1424 01/06/19 1424 Results 24 hrs Laboratory Tests Test 01/06/19 14:24 White Blood Count 2.4 10^3/ul Red Blood Count 3.76 10^6/ul Hemoglobin 9.8 g/dl Hematocrit 30.0 % Mean Corpuscular Volume 79.8 fl Mean Corpuscular Hemoglobin 26.1 pg Mean Corpuscular Hemoglobin Concent 32.7 g/dl Red Cell Distribution Width 16.3 % Platelet Count 111 10^3/UL Mean Platelet Volume 9.0 fl Immature Granulocytes % 0.400 % Neutrophils % 49.4 % Segmented Neutrophils % (Manual) 59 % Band Neutrophils % (Manual) 1 % Lymphocytes % 30.8 % Lymphocytes % (Manual) 32 % Monocytes % 15.6 % Monocytes % (Manual) 4 % Eosinophils % 3.4 % Eosinophils % (Manual) 4 % Basophils % 0.4 % Nucleated Red Blood Cells % 0.0 /100WBC Immature Granulocytes # 0.010 10^3/ul Neutrophils # 1.2 10^3/ul Neutrophils # (Manual) 1.4 10^3/ul Band Neutrophils # 0.0 10^3/ul Lymphocytes (Manual) 0.7 10^3/ul Lymphocytes # 0.7 10^3/ul Monocytes # 0.4 10^3/ul Monocytes # (Manual) 0.0 10^3/ul Eosinophils # 0.1 10^3/ul Basophils # 0.0 10^3/ul Nucleated Red Blood Cells # 0.0 10^3/ul Platelet Estimate DECREASED Giant Platelets 1 % Poikilocytosis 1+ Anisocytosis 1+ Microcytosis 1+ Sodium Level 134 mmol/L Potassium Level 4.3 mmol/L Chloride Level 105 mmol/L Carbon Dioxide Level 23 mmol/L Anion Gap 6 Blood Urea Nitrogen 8 mg/dl Creatinine 0.58 mg/dl Est Glomerular Filtrat Rate mL/min > 60 mL/min Glucose Level 133 mg/dl Calcium Level 8.5 mg/dl Total Bilirubin 0.5 mg/dl Direct Bilirubin 0.00 mg/dl Indirect Bilirubin 0.5 mg/dl Aspartate Amino Transf (AST/SGOT) 63 IU/L Alanine Aminotransferase (ALT/SGPT) 44 IU/L Alkaline Phosphatase 120 IU/L Troponin I < 0.012 ng/ml Total Protein 8.1 g/dl Albumin 3.4 g/dl Globulin 4.70 g/dl Albumin/Globulin Ratio 0.72 Lipase 123 U/L Current Medications Medications Dose Sig/Kareem Start Time Status Last (Trade) Ordered Route PRN Stop Time Admin Dose Reason Admin Famotidine 20 mg ONCE STAT 01/06/19 DC 01/06/19 (Pepcid Iv) IV 14:18 14:26 01/06/19 14:20 40 ml ONCE STAT 01/06/19 DC 01/06/19 Miscellaneous PO 14:18 14:26 Medication 01/06/19 14:20 (Gi Cocktail (2)) 650 mg ONCE ONCE 01/06/19 DC 01/06/19 Acetaminophen PO 15:00 14:59 (Tylenol 01/06/19 15:01 Tab) Procedures/MDM EKG, MONITORS, & DIAGNOSTIC IMAGING: EKG: I reviewed and interpreted a 12-lead EKG. Rhythm: Normal sinus rhythm ST Changes: No contiguous ST segment elevations T waves: No contiguous T wave inversions Impression: No evidence of acute cardiac ischemia LAB INTERPRETATION: I reviewed the laboratory testing and it shows pancytopenia that is consistent with baseline MEDICAL DECISION MAKING: Patient's clinical exam history and presentation are very consistent with likely dyspepsia and gastritis or esophageal reflux. The patient otherwise has a benign abdominal exam with very low pretest probability for acute intraabdominal process. Patient does note a history of possible cirrhosis but her abdomen is soft and nontender without concern for SBP. No signs or symptoms concerning for exertional symptoms, very low pretest probably for cardiac etiology though given her age it would be reasonable to check EKG and troponin. ER COURSE: * GI cocktail provided * The patient's symptoms are improved. Her laboratory testing is consistent with baseline. No signs or symptoms concerning for hepatobiliary obstruction. At this point I feel the patient can be safely discharged with outpatient GI follow-up. CONSULTATION: None DISPOSITION PLAN: The patient does not have an identifiable emergent medical condition that w arrants inpatient hospitalization at this time. The patient is deemed safe for discharge with outpatient follow-up. We discussed follow up with the patient's primary care doctor within 24 to 48 hours as needed. We also discussed return to the emergency room for worsening symptoms or worsening condition. Outpatient referral: Gastroenterology Discharge Medications: Sucralfate Departure Diagnosis: Primary Impression: Epigastric abdominal pain Additional Impressions: Dyspepsia Pancytopenia Condition: Stable ROSI MARTINEZ MD January 06, 2019 14:30
[2019-01-06] MEDS ORDERED: FER325 PO (14:36)
[2019-01-06] MEDS ORDERED: INSU300I SQ (14:36)
[2019-01-06] MEDS ORDERED: OMEP40CA6 PO (14:37)
[2019-01-06] MEDS ORDERED: INSU100C SQ (14:37)
[2019-01-06] MEDS ORDERED: INSU100I12 SQ (14:38)
[2019-01-06] MEDS ORDERED: FURO20TA3 PO (14:42)
[2019-01-06] MEDS ORDERED: ACETAMINOPHEN 325 MG TAB PO ONE (15:00)
[2019-01-06] MEDS ORDERED: SUCR1TAB56 PO (16:41)
== END 2019-01-06 18:16 | disposition home or self-care (01) ==
LOC: E/R 11:54
DX: R10.13 Epigastric pain (principal); I10 Essential (primary) hypertension; E11.9 Type 2 diabetes mellitus without complications; D61.818 Other pancytopenia; Z79.4 Long term (current) use of insulin
CPT/HCPCS: 80053; 83690; 84484; 85025; 93005; Z7610; 36415; 96374

== ENCOUNTER 2019-03-25 11:48 | Emergency (ER) | payer OTHER ==
[~2019-03-25] VITALS: Ht 160 cm; Wt 96.8 kg
[~2019-03-25 11:48] MED LIST changes: -AZIT250T PO; +DOCU-144 PO; +FURO20TA3 PO; +INSU100I12 SQ; -INSU200I SQ; -RANI150T35 PO; -SIMV20TA PO; +SUCR1TAB56 PO
[2019-03-25 11:53] VITALS: BP 145/68; PULSE 80; RESP 18; Ht 160 cm; Wt 96.8 kg
--- NOTE | 2019-03-25 14:24 | ERD ---
ER Documentation Chief Complaint Chief Complaint vag bleed x 1 week with lt lower abd pain HPI 58-year-old female presenting with vaginal bleeding x1 week with generalized pelvic discomfort. Patient denies any abdominal pain. She denies any dysuria and denies fevers. Denies back pain. Medical history diabetes and cirrhosis. NKDA. Surgical history cholecystectomy. Social history denies ROS All systems reviewed and are negative except as per history of present illness. Medications Home Meds Active Scripts Ferrous Sulfate* (Ferrous Sulfate*) 325 Mg Tabec, 325 MG PO DAILY, #30 TAB Prov:TERESA STEWART PA-C 03/25/19 Docusate Sodium* (Colace*) 100 Mg Capsule, 100 MG PO TID, #30 CAP Prov:TERESA STEWART PA-C 03/25/19 Sucralfate* (Carafate*) 1 Gm Tab, 1 GM PO WITH MEALS for 30 Days, TAB Prov:ROSI MARTINEZ MD 01/06/19 Reported Medications Furosemide* (Furosemide*) 20 Mg Tablet, 20 MG PO DAILY, #60 TAB 01/06/19 Insulin Lispro (Humalog Kwikpen U-100) 100 Unit/1 Ml Insuln.pen, 30 UNIT SQ TID, EA 01/06/19 Omeprazole* (Omeprazole*) 40 Mg Capsule.dr, 40 MG PO DAILY, #30 CAP 01/06/19 Insulin Glargine,Hum.rec.anlog (Toujeo Solostar) 300 Unit/1 Ml Insuln.pen, 90 UNIT SQ QHS, EA 01/06/19 Ferrous Sulfate* (Ferrous Sulfate*) 325 Mg Tabec, 325 MG PO BID, TAB 01/06/19 Allergies Allergies: Coded Allergies: No Known Drug Allergies (Verified Allergy, Unknown, 01/06/19) PMhx/Soc History of Surgery: Yes (CHOLECYSECTOMY) Anesthesia Reaction: No Hx Neurological Disorder: No Hx Respiratory Disorders: No Hx Cardiac Disorders: Yes (HTN) Hx Psychiatric Problems: No Hx Miscellaneous Medical Probl: Yes (ANEMIA, DM, CIRRHOSIS) Hx Alcohol Use: No Hx Substance Use: No Hx Tobacco Use: No Smoking Status: Never smoker FmHx Family History: No diabetes, No coronary disease, No other Physical Exam Vitals Vital Signs Date Temp Pulse Resp B/P (MAP) Pulse Ox O2 O2 Flow FiO2 Time Delivery Rate 03/25/19 98.2 80 18 145/68 98 11:53 (93) Physical Exam GENERAL: The patient is well-appearing, well-nourished, in no acute distress HEENT: Atraumatic. Conjunctivae are pink. Pupils equal, round, and reactive to light. There is no scleral icterus. Tympanic membranes clear bilaterally. Oropharynx clear. CHEST: Clear to auscultation bilaterally. There are no rales, wheezes or rhonchi. HEART: Regular rate and rhythm. No murmurs, clicks, rubs or gallops. ABDOMEN:Soft, nontender and nondistended. Good bowel sounds. No rebound or guarding. No gross peritonitis. No gross organomegaly or masses. Mild tenderness to palpation over the pelvic area. BACK: No midline or flank tenderness. Result Diagram: 03/25/19 1255 03/25/19 1255 Results 24 hrs Laboratory Tests Test 03/25/19 12:55 White Blood Count 2.3 10^3/ul Red Blood Count 3.81 10^6/ul Hemoglobin 10.0 g/dl Hematocrit 31.7 % Mean Corpuscular Volume 83.2 fl Mean Corpuscular Hemoglobin 26.2 pg Mean Corpuscular Hemoglobin Concent 31.5 g/dl Red Cell Distribution Width 16.5 % Platelet Count 122 10^3/UL Mean Platelet Volume 9.2 fl Immature Granulocytes % 0.000 % Neutrophils % 48.3 % Lymphocytes % 34.2 % Monocytes % 12.7 % Eosinophils % 3.9 % Basophils % 0.9 % Nucleated Red Blood Cells % 0.0 /100WBC Immature Granulocytes # 0.000 10^3/ul Neutrophils # 1.1 10^3/ul Lymphocytes # 0.8 10^3/ul Monocytes # 0.3 10^3/ul Eosinophils # 0.1 10^3/ul Basophils # 0.0 10^3/ul Nucleated Red Blood Cells # 0.0 10^3/ul Urine Color YELLOW Urine Clarity CLEAR Urine pH 7.0 Urine Specific Madelia 1.008 Urine Ketones NEGATIVE mg/dL Urine Nitrite NEGATIVE mg/dL Urine Bilirubin NEGATIVE mg/dL Urine Urobilinogen NEGATIVE mg/dL Urine Leukocyte Esterase TRACE Lora/ul Urine Microscopic RBC 19 /HPF Urine Microscopic WBC 5 /HPF Urine Hemoglobin 1+ mg/dL Urine Glucose NEGATIVE mg/dL Urine Total Protein NEGATIVE mg/dl Sodium Level 136 mmol/L Potassium Level 4.3 mmol/L Chloride Level 104 mmol/L Carbon Dioxide Level 27 mmol/L Anion Gap 5 Blood Urea Nitrogen 6 mg/dl Creatinine 0.71 mg/dl Est Glomerular Filtrat Rate mL/min > 60 mL/min Glucose Level 241 mg/dl Calcium Level 8.7 mg/dl Total Bilirubin 0.5 mg/dl Direct Bilirubin 0.00 mg/dl Indirect Bilirubin 0.5 mg/dl Aspartate Amino Transf (AST/SGOT) 62 IU/L Alanine Aminotransferase (ALT/SGPT) 41 IU/L Alkaline Phosphatase 105 IU/L Total Protein 8.5 g/dl Albumin 3.6 g/dl Globulin 4.90 g/dl Albumin/Globulin Ratio 0.73 Lipase 105 U/L Procedures/MDM DIAGNOSTIC IMAGING REPORT Patient: GASPER PINTO : 1960 Age: 58 Sex: F MR #: [id number] DOS: 03/25/19 1235 Ordering MD: ALIA STEWART PA-C Location: [facility] Room/Bed: PROCEDURE: US Pelvis Non-OB CLINICAL INDICATION: Abdominal pain TECHNIQUE: Images were taken during real time trans pelvic interrogation. COMPARISON: None FINDINGS: Uterus: appears mildly prior in size measuring 9.9 cm in sagittal diameter and 5.0 x 4.0 cm in cross diameter. The endometrial stripe is thickened to 1.6 cm. Ovaries: Neither ovary is visualized. Adnexa: No adnexal mass is identified. Free intraperitoneal fluid: None visualized. IMPRESSION: 1. The uterus is mildly prominent and the endometrial stripe is homogeneous but thickened to 1.6 cm. 2. Neither ovary was identified. 3. No adnexal mass or free fluid is evident. MDM: 58-year-old female presenting with vaginal bleeding. I have low suspicion for hemodynamic instability. Patient does not require transfusion at this time. Patient is recommended to follow-up with OB as she is going to need a endometrial biopsy however at this time patient's exam is nonemergent. I have low suspicion for acute abdominal emergency. Patient is discharged with strict ER precautions and told to follow-up with primary care within 1 to 2 days for close evaluation. All questions answered at discharge Departure Diagnosis: Primary Impression: Vaginal bleeding Condition: Stable Patient Instructions: Menorrhagia Referrals: GLADYS ARAGON MD (PCP) [facility] [place] [id number] [facility] [address] [place] [address] OFFICE FAX , JAIME [address] [place] [address] DR[address] DAVISONFORMERLY [facility] [address] [place] [address] DR NUÑEZ, [facility] [address] [facility] [address], [facility] [address] [address] [facility] [address] [place] [address] [facility] [address] [place] [address] [address] [facility] [id number] - MICHAEL PET[address] [facility], [place] [address] DR DAILEY, [place]INY [address] [facility]. [address], [place] [address] [address] [facility] [address] [place], [place] [id number] Additional Instructions: FOLLOW UP WITH YOUR PRIMARY CARE PHYSICIAN TOMORROW.Return to this facility if you are not improving as expected. TERESA STEWART PA-C Mar 25, 2019 14:24
== END 2019-03-25 14:14 | disposition home or self-care (01) ==
LOC: FTE 11:48
DX: N93.9 Abnormal uterine and vaginal bleeding, unspecified (principal); I10 Essential (primary) hypertension; E11.9 Type 2 diabetes mellitus without complications; Z79.4 Long term (current) use of insulin
CPT/HCPCS: 36415; 76856; 80053; 81001; 83690; 85025

== ENCOUNTER 2019-04-26 07:44 | Day surgery (SDC) | payer OTHER ==
[~2019-04-26] VITALS: Ht 157.5 cm; Wt 97.1 kg
[~2019-04-26 07:44] MED LIST changes: +OMEP40CA38 PO; -OMEP40CA6 PO
[2019-04-26 08:00] VITALS: Ht 157.5 cm; Wt 97.1 kg
[2019-04-26 08:25] VITALS: BP 119/64; PULSE 70; RESP 18
[2019-04-26] MEDS ORDERED: FENTAnyl 50 MCG/ML VIAL ONE (08:27)
[2019-04-26] MEDS ORDERED: PROPOFOL 40 ML ONE (08:27)
[2019-04-26] MEDS ORDERED: LIDOCAINE 100 MG SYRINGE ONE (08:27)
[2019-04-26 09:18] VITALS: BP 117/56; RESP 14
== END 2019-04-26 11:04 | disposition home or self-care (01) ==
LOC: GIL 07:44
PROVIDERS: ATTEND Internal Medicine Gastroenterology
DX: I85.00 Esophageal varices without bleeding (principal); K29.30 Chronic superficial gastritis without bleeding; E11.9 Type 2 diabetes mellitus without complications; Z79.4 Long term (current) use of insulin
CPT/HCPCS: 43239; 82962; 88305; 88312; J2001; J3010; Z7610